=== PATIENT | female | born 1965 | race Caucasian/White ===

== ENCOUNTER → 2018-05-08 16:14 | Outpatient (CLI) | payer MEDICAID, SELFPAY ==
--- NOTE | 2018-05-08 16:19 | RAD_ITS ---
STUDY: X-RAY - RIGHT HAND REASON FOR EXAM: Female, 52 years old. Pain TECHNIQUE: 3 view(s) of the hand. COMPARISON: 07/14/2011 FINDINGS: Normal radiocarpal articulation. Normal distal radioulnar joint. Normal visualized carpal bones. Normal carpal articulations Normal carpometacarpal articulation of the thumb. Normal second through fifth carpometacarpal joints. Normal metacarpi. Normal metacarpophalangeal joint of the thumb. Normal interphalangeal joint of the thumb. Normal proximal and distal phalanges of the thumb. Normal metacarpophalangeal joints of the second through fifth fingers. Normal proximal and distal interphalangeal joints of the second through fifth fingers. Normal phalanges of the second through fifth fingers. The soft tissue structures are unremarkable. RAD/Hand Min 3 Views IMPRESSION: Normal x-ray examination of the hand. Electronically Signed: Delmar Clifford MD at 16:31 EDT , Service support ,
--- NOTE | 2018-05-08 16:19 | RAD_ITS ---
STUDY: X-RAY - LEFT HAND REASON FOR EXAM: Female, 52 years old. Pain TECHNIQUE: 3 view(s) of the hand. COMPARISON: 07/12/2017 FINDINGS: Normal radiocarpal articulation. Normal distal radioulnar joint. Normal visualized carpal bones. Normal carpal articulations Normal carpometacarpal articulation of the thumb. Normal second through fifth carpometacarpal joints. Normal metacarpi. Normal metacarpophalangeal joint of the thumb. Normal interphalangeal joint of the thumb. Normal proximal and distal phalanges of the thumb. Normal metacarpophalangeal joints of the second through fifth fingers. Normal proximal and distal interphalangeal joints of the second through fifth fingers. Normal phalanges of the second through fifth fingers. The soft tissue structures are unremarkable. RAD/Hand Min 3 Views IMPRESSION: Normal x-ray examination of the hand. Electronically Signed: Delmar Clifford MD at 16:30 EDT , Service support ,
== END ==
PROVIDERS: Family Provider Family Medicine; PCP Family Medicine; Referring Provider Family Medicine; Visit Provider Family Medicine
DX: M06.9 Rheumatoid arthritis, unspecified (principal)
CPT/HCPCS: 73130

== ENCOUNTER 2018-09-23 23:23 | Emergency (ER) | payer MEDICAID, SELFPAY ==
[2018-09-23 23:24] VITALS: BP 117/81; PULSE 105; RESP 17; TEMP 37.1; O2SAT 100; BMI 36.6
[2018-09-23] MEDS: proMETHazine 25 MG/ML Syringe 12.5 MG IV (23:45)
[2018-09-23] MEDS: 0.9% Normal Saline 1,000 ML 1000 ML IV (23:45)
[2018-09-23 23:57] LABS: Absolute Lymphocyte Count 0.27 X10^3/ul (0.83-4.51); Absolute Neutrophil Count 8.5 X10^3/uL (2.0-7.7); Basophil# 0.01 X10^3/uL; Basophil% 0.1 % (0-1); Eosinophils% 1.1 % (0-5); Hematocrit 45.8 % (37-47); Hemoglobin 14.9 g/dl (12.0-15.0); Lymphocyte # 0.27 X10^3/ul (4.0); Mean Corp Hgb Conc 32.5 g/gl (32-36); Mean Corpuscular Hgb 32.1 pg (27.0-32.0); Mean Corpuscular Volume 98.7 fL (81-99); Mean Platelet Vol. 8.9 fl (6.2-12.0); Monocyte# 0.27 X10^3/uL; Neutrophil # 8.49 X10^3/uL (2.7-7.7); Neutrophil % 92.7 % (47-70); Platelet Count 200 K/mm3 (150-450); RBC Distribution Width CV 13.1 % (11.6-14.6); RBC Distribution Width SD 47.2 fl (35.1-43.9); Red Blood Count 4.64 M/mm3 (4.2-5.4); White Blood Count 9.2 K/mm3 (4.4-11.0)
[2018-09-23 23:59] LABS: Differential Indicated SCAN CRITERIA MET; POSITIVE COUNT NO; POSITIVE DIFFERENTIAL YES; POSITIVE MORPHOLOGY NO
[2018-09-24 00:30] LABS: AST(SGOT) 33 U/L (15-37); Alanine Aminotransfer ALT/SGPT 28 U/L (13-56); Alkaline Phosphatase 83 U/L (45-117); Anion Gap 7 (5-15); BUN 17 mg/dL (7-18); BUN/Creat Ratio 15.6 RATIO (10-20); Chloride 104 mmol/L (98-107); Creatinine, Serum 1.09 mg/dL (0.55-1.02); EST Glomerular Filtration Rate 56 mL/min (>60); Est Glom Filt Rate - Afr Amer 68 mL/min (>60); Estimated Creatinine Clearance 65.29 ml/min; Globulin 4.1 g/dL (2.2-4.2); Glucose 118 mg/dL (74-106); Lipase 241 U/L (73-393); Potassium 4.4 mmol/L (3.5-5.1); Protein, Total 8.1 g/dL (6.4-8.2); Sodium Level 134 mmol/L (136-145)
[2018-09-24] MEDS: Loperamide 2 MG Capsule 4 MG PO (00:51)
--- NOTE | 2018-09-24 01:47 | ED.VISSUMM ---
- ER Visit Summary Date of Service: 09/24/18 Chief Complaint: Nausea, vomiting, and diarrhea History of Present Illness: The patient is a 52 F who presents with nausea, vomiting, and diarrhea. The symptoms started today around 7:30 PM. This is nonbloody. She has associated chills. No other associated symptoms. No abdominal pain. No recent travel or other red flag risk factors. Physical Examination: Afebrile and vital signs unremarkable except for heart rate of 105. The patient appears uncomfortable but not toxic or in distress. HEENT exam grossly unremarkable. Mucous membrane's are moist. Skin normal in color without jaundice, diaphoresis, or pallor. Heart tachycardic but regular. Lungs clear. Abdomen soft and nontender. No guarding or rebound. Test Results: CBC, CMP, lipase unremarkable. Emergency Department Course and Treatment: Patient treated with fluids, Phenergan, and Imodium. She had resolution of her symptoms. I believe this is likely viral gastroenteritis. There is no indication for stool testing or imaging or further testing at this point. Patient was advised that things may change, and if she has new or worsening symptoms, she should return as she may need additional testing or evaluation. She was treated with a course of Phenergan and Imodium. Treatment Plan: As above Disposition: Discharge Impression: 1. Nausea, vomiting, diarrhea This note was generated with [employer] dictation software. It may contain incorrect words, spelling, and punctuation that were not noted in review of the chart prior to signing ED Disposition - Plan for ED Patient: Instructions: ED Vomiting Diarrhea Nonspecific Ad Prescriptions: Loperamide [Imodium] 2 mg PO Q4H PRN PRN #30 cap PRN Reason: Diarrhea proMETHazine tablet [Phenergan] 25 mg PO Q6H PRN PRN #10 tab PRN Reason: Nausea Referrals: Kaleb Steele MD [Primary Care Provider] -
[2018-09-24 02:07] VITALS: BP 129/79; PULSE 94; RESP 18; O2SAT 96
== END 2018-09-24 02:09 | disposition home or self-care (01) ==
LOC: ED 23:47
PROVIDERS: Emergency Provider Emergency Medicine; Family Provider Family Medicine; PCP Family Medicine
DX: R11.2 Nausea with vomiting, unspecified (principal); R19.7 Diarrhea, unspecified; I10 Essential (primary) hypertension; M19.90 Unspecified osteoarthritis, unspecified site; M10.9 Gout, unspecified; Z72.0 Tobacco use; Z79.899 Other long term (current) drug therapy
CPT/HCPCS: 80053; 83690; 85025; 96361; 96374; 99284; J7030; A4216

== ENCOUNTER → 2018-10-08 12:52 | Outpatient (CLI) | payer MEDICAID, SELFPAY ==
[2018-09-23 23:24] VITALS: BMI 36.6
--- NOTE | 2018-10-08 12:54 | RAD_ITS ---
STUDY: X-RAY - LEFT KNEE REASON FOR EXAM: Female, 52 years old. Left knee pain. No known injury. TECHNIQUE: 4 view(s) of the knee. COMPARISON: Prior comparison studies are not available for review at this time. FINDINGS: There is degenerative periarticular spurring of the femoral condyles. There is mild degenerative periarticular spurring of the tibial plateaus, greater laterally, and tibial spines, greater medially. Subarticular sclerosis and mild subarticular cystic degenerative change also noted in the lateral tibial plateau. Normal visualized proximal fibula. There is early periarticular spurring at the base of the patella. There is no demonstrated destructive osseous lesion or acute fracture. Normal medial femorotibial compartment. There is mild degenerative arthrosis of the lateral femorotibial compartment. Normal patellofemoral articulation. Normal proximal tibiofibular articulation. There is no demonstrated joint effusion. The soft tissue structures are unremarkable. RAD/Knee 4 or More Views IMPRESSION: Degenerative changes of the left knee, as described, most prominent in the lateral femorotibial compartment. Electronically Signed: Delmar Sow MD at 19:13 EDT , Service support ,
== END ==
PROVIDERS: Family Provider Family Medicine; PCP Family Medicine; Referring Provider Physician Assistant; Visit Provider Physician Assistant
DX: M25.562 Pain in left knee (principal)
CPT/HCPCS: 73564

== ENCOUNTER → 2018-10-15 08:28 | Outpatient (CLI) | payer MEDICAID, SELFPAY ==
[2018-10-12 14:14] VITALS: BMI 36.6
== END ==
PROVIDERS: Family Provider Family Medicine; PCP Family Medicine; Referring Provider Nurse Practitioner Family; Visit Provider Nurse Practitioner Family
DX: J02.9 Acute pharyngitis, unspecified (principal)
CPT/HCPCS: 87081

== ENCOUNTER 2019-01-01 07:27 | Observation (INO) | payer MEDICAID, SELFPAY ==
[2018-12-03 08:35] VITALS: BMI 36.6
[2018-12-25 14:21] VITALS: BP 123/75; PULSE 82; RESP 16; TEMP 36.4; O2SAT 96; BMI 38.8
--- NOTE | 2018-12-25 14:30 | SDCEKG_ITS ---
Test Reason : Blood Pressure : / mmHG Vent. Rate : 079 BPM Atrial Rate : 079 BPM P-R Int : 152 ms QRS Dur : 098 ms QT Int : 410 ms P-R-T Axes : 013 030 017 degrees QTc Int : 470 ms Normal sinus rhythm Normal ECG Confirmed by PIPE STAFFORD, MARTA ([id number]), fashion editor AYLEEN ADAM ([id number]) on 12/28/2018 6:42:27 AM Referred By: Chris Newell Confirmed By:MARTA BETANCUR MD
--- NOTE | 2018-12-31 16:14 | PCM.HP.BLA ---
History and Physical Date of Admission: 01/01/19 MR#: [id number] Acct: [id number] Name: WILLA MACKAY Rep #: [id number] : 1965 Provider: Chris Newell DO Age/Sex: 53/F Location: [facility] [place].[facility] Status: Signed Intake Vital Signs 12/03/18 Body Mass Index (BMI) 36.6 Intake Visit Reasons: LEFT KNEE Chief Complaint: sore throat Allergies codeine Allergy (Verified 10/12/18 14:13) Rash Medications Acebutolol HCl [Sectral (Beta Darius)] 200 mg PO DAILY 07/21/13 [History Confirmed 10/12/18] Hydroxychloroquine [Plaquenil] 200 mg PO BIDCM 07/21/13 [History Confirmed 10/12/18] Meloxicam [Mobic] 15 mg PO DAILY 10/18/15 [History Confirmed 10/12/18] Allopurinol [Zyloprim] 100 mg PO DAILY 10/20/15 [History Confirmed 10/12/18] Citalopram [Celexa] 40 mg PO DAILY 09/23/18 [History Confirmed 10/12/18] Ranitidine HCl [Zantac] 150 mg PO DAILY 09/23/18 [History Confirmed 10/12/18] Loperamide [Imodium] 2 mg PO Q4H PRN PRN #30 cap 09/24/18 [Rx Confirmed 10/12/18] proMETHazine tablet [Phenergan] 25 mg PO Q6H PRN PRN #10 tab 09/24/18 [Rx Confirmed 10/12/18] amoxicillin 500 mg capsule 500 mg PO BID #14 cap 10/12/18 [Rx Confirmed 10/12/18] PFSH Medical History Arthritis (Acute) Asthma (Acute) Knee pain (Acute) Hypertension (Chronic) Family History Other COPD (chronic obstructive pulmonary disease) Seizures Social History Smoking Status: Current every day smoker HPI LEFT KNEE: Surgical H&P: Yes Details: Parts of this documentation were recorded by a scribe, this documentation accurately reflects the service provided and the decisions made by Chris ocasio DO 12/03/18 0758. WILLA MACKAY is a 53 year old F here today for new patient visit. Has seen Christoph in the past. Patient received a left knee steroid injection on 10/08/18 patient states this was only effective for a few days. States she has had several steroid injections, as well as visco supplement. She also had x-rays in september. Patient has an rapier insertion loom fixer brace which she states is effective when she wears it. Has tried ibuprofen and Aleve. Has tried ice and heat, does use ice daily which is not helpful. Denies any PT. Does have painful grinding. Had synvisc injections about 3 years ago which she states was effective for awhile. Denies numbness, tingling or other associated symptoms. Is here today to discuss total knee arthroplasty. Does take mobic. States her left knee has been very painful for 6 months but has had trouble for about 5 years. Did have a left knee meniscus surgery about 5 years ago. Had a pulmonary embolism when she was 18, but no prior or further blood clots no family history and she is not on blood thinners. She does smoke 1/2 pack/day denies any family hx of blood disorders. ROS Const Reports system reviewed and no additional complaints, except as docu Eyes Reports system reviewed and no additional complaints, except as docu ENT Reports system reviewed and no additional complaints, except as docu Card Reports system reviewed and no additional complaints, except as docu Resp Reports system reviewed and no additional complaints, except as docu GI Reports system reviewed and no additional complaints, except as docu Musc Reports system reviewed and no additional complaints, except as docu, Reports as per HPI Skin/Breast Reports system reviewed and no additional complaints, except as docu Neuro Yes system reviewed and no additional complaints, except as docu Psych Reports system reviewed and no additional complaints, except as docu Endo Reports system reviewed and no additional complaints, except as docu Rajiv/Lymph Reports system reviewed and no additional complaints, except as docu Aller/Immun Reports system reviewed and no additional complaints, except as docu Ortho Exam Right Knee Patella Translation: 1 Left Knee Skin/Wound: No ecchymosis, No erythema Homans Sign: No 1+: Effusion Knee ROM: Yes ROM-Extension -20 to 0, No ROM-Flexion 0-140 (120) Examination: No med jt line tenderness, Yes Lat jt line tenderness, Yes Crepitus Stability: NML: Anterior Drawer, NML: Posterior Drawer Patella Translation: 1 Apprehension with Lateral Translation: No Patella Grind: Yes KNEE: prominent varicose veins Collateral and cruciate ligaments intact. No sign of skin infections Supplemental Info 10/08/2018 x-ray left knee: [id number] arthritis lateral compartment large bone spurs throughout the knee Assessment & Plan Problems 1. Primary osteoarthritis of left knee M17.12 2. Tobacco abuse Z72.0 Plan X-rays were reviewed. There is no obvious fracture, dislocation, or lucency noted. Patient aware she has severe OA of her left knee. Patient may continue with her rapier insertion loom fixer brace or is a candidate for surgery. Reviewed the pre-operative plans of a TKA with the patient. Risks and benefits of the procedure were fully explained, including but not limited to infection, neurovascular injury, continued pain, arthritis, stiffness, need for further surgery, re-injury, DVT, PE, general risks of anesthesia, and loss of limb or life. The patient understands all the risks and does wish to proceed with written consent. Educated that the most important part is gaining mobility after surgery. full recovery can take 2 yrs. Will not be able to run or jump after knee replacement d/t the high impact. Educated about a press fit implant vs a cemented implant. Recommendation is a press fit implant as long as it is CR and patient is ok with this. Educated that she will be off work any where from 8 weeks to 3 months. Patient wishes to have total mid to late December. Wishes to have surgery January 01 2019. May call the office for any further questions. Will need PCP consent. Instructed to stop smoking to decrease risk of infection. Follow up in 2 weeks post op or sooner if pain, swelling, numbness or associated symptoms, or concerns develop. All questions answered. Patient in agreement of plan. Coding Level of Care Code Off vis,est,level 3 Diagnoses Primary osteoarthritis of left knee M17.12 Tobacco abuse Z72.0 12/05/18 1321 <Electronically signed by Chris Newell DO> Date Chris Newell DO I have re-examined the patient. There are no clinical changes since date of exam
[2019-01-01] VITALS (12 sets, daily range): BP systolic 108–154; BP diastolic 62–116; PULSE 67–85; RESP 14–18; TEMP 36.3–36.8; O2SAT 92–100; BMI 38.8; BMI 40.6
[2019-01-01] MEDS: Celecoxib 200 MG Capsule 400 MG PO (08:03)
[2019-01-01] MEDS: Acetaminophen 500 MG Tablet PO (08:04)
[2019-01-01] MEDS: Pregabalin 75 MG Capsule PO (08:05)
[2019-01-01] MEDS: oxyCODONE HCl Cr 10 MG Tablet PO (08:05)
[2019-01-01] MEDS: Cefazolin 2 GM in 0.9% Normal Saline 100 ML IV ×2 (10:37→19:13)
[2019-01-01] MEDS: Bupivacaine Mpf 0.5% 30 ML VIAL (11:45)
[2019-01-01] MEDS: Epinephrine (1 mg/ml) 1 MG/ML VIAL (11:45)
[2019-01-01] MEDS: Morphine 4 MG/ML Syringe (11:45)
[2019-01-01] MEDS: Lactated Ringers 1,000 ML 125 ML IV ×2 (12:25→19:14)
--- NOTE | 2019-01-01 12:31 | PCM.OPRPT ---
Report of Operation Date of Procedure: 01/01/19 Description of Surgical Findings:: Preoperative diagnosis: [Left] knee DJD Postoperative diagnosis: [Same] Procedure: [Left] total knee arthroplasty Implant: [place] triathlon cemented [left] femoral component size 5, cemented tibial baseplate size 5, cemented [asymmetric] patella size [32], polyethylene X3 size [9] [CS] Anesthesia: Spinal with adductor canal block Tourniquet time: 70 minutes at 300 mmHg Complications: None Condition: Stable to PACU Estimated blood loss: [25] cc Indication for procedure: This is a 53-year-old female with long standing degenerative joint disease of the knee who has failed conservative treatment and wished to proceed with elective total knee arthroplasty. Risk benefits and alternatives were reviewed including; risk of bleeding, infection, nerve artery and tissue damage, continued pain, postoperative stiffness, venous thromboembolism, need for postoperative rehabilitation, mechanical feel to the knee, and expected postoperative course. Procedure: The patient was met in the preoperative holding area. The operative extremity was identified by both patient and physician and was marked. Patient was met by anesthesia. An adductor canal block was placed by anesthesia [postoperatively] the patient was brought back to the operating room on a wheeled cart and transferred to the operating table in the supine position. Anesthesia was started. A well-padded tourniquet was placed on the operative extremity. The patient was prepped and draped in the usual sterile fashion. A timeout was called to ensure the proper patient procedure and extremity were being contemplated. An Esmarch was used to exsanguinate the extremity. The tourniquet was inflated. A 10 blade scalpel was used to make a midline incision down through the skin and subcutaneous tissue. Skin retractors placed. Bovie was used to perform meticulous hemostasis. full-thickness flaps were elevated medial and lateral along the joint capsule. A deep blade scalpel was used to perform a medial parapatellar arthrotomy. The knee was brought to full extension. A Bovie was used to release the soft tissues off the most proximal aspect of the medial tibial plateau a three-quarter inch curved osteotome was also used for this process. The infrapatellar fat pad was excised. [The fat pad was excised partially anterior lateral portion the anterior medial was elevated from the femur]. the patella was everted. The knee was brought into flexion. An intramedullary drill was used followed by flexible intramedullary guide jil. The distal femoral cutting block was placed and set to remove 10 mm of bone and [5] degrees of valgus. The block was secured with pins and an oscillating saw was used to complete the distal femoral cut. During this, and all bony cuts retractors were used to protect the collateral ligaments. At this point a femoral sizer was used to measure the AP dimension of the femur. The sizer block was pinned in 3 degrees of external rotation. The sizing block was removed and the appropriately sized 4-in-1 cutting block was placed over the previously made pinholes. It was checked with an harjeet wing and the block was secured with pins. An oscillating saw was used to complete the anterior cut followed by the posterior cut followed by the posterior chamfer cut followed by the anterior chamfer cut. The block was removed as well as the fragments. A ronguer was used to remove excess osteophytes. The medial and lateral meniscus were excised as well as the ACL. At this point a PCL retractor was placed and an intramedullary drill was passed down the tibial canal followed by a solid intramedullary guide jil. The tibial cutting block was attached and set to remove 9 mm of bone from the high side. This was checked with an external alignment drop jil for slope and tilt. It was pinned into place. An oscillating saw was used to complete the tibial plateau cut and the block was removed. A large osteotome was used to elevate the fragment and a Neil and a Bovie were used to free the fragment from the surrounding soft tissue. A rongeur was once again used to remove osteophytes a lamina candy spreader was used to evaluate the posterior capsular structures. A three-quarter inch curved osteotome was used to remove posterior osteophytes. A spacer block was inserted in both extension and flexion to ensure adequate spacing. Trials were inserted full extension and flexion were achieved in varus and valgus stability throughout range of motion were seen, balancing techniques were performed. At this point the attention was turned towards the patella. A caliper was used to ensure sufficient bone stock to remove 10 mm of bone. A reamer was used to perform this task. Lug holes were made for the appropriate-sized patella. The patella trial was inserted and there was good patellar tracking with knee range of motion. The tibial baseplate was allowed to float into rotation and was marked on the tibial plateau with a Bovie. Lug holes were made in the femur and trials were removed. The tibial baseplate was then sized and its preparation was completed with a fin punch. The knee was thoroughly irrigated. A posterior capsular injection was performed [with our standard cocktail]. The knee was brought into flexion and irrigated again. The tibial baseplate was cemented. Excess cement was removed with curettes. The polyethylene component was inserted. The femoral component was cemented. The knee was brought into full extension and placed on a bump. The patellar component was cemented. At this point a Betadine rinse was placed and thoroughly irrigated after a few minutes. This was followed by an Iricept rinse which was allowed to sit for 1 minute and then thoroughly irrigated.At this point all gloves were changed. The knee was thoroughly irrigated the joint capsule was closed with [#1 Ethibond]. Tourniquet was let down followed by 0 Vicryl and 2-0 Vicryl in the subcutaneous tissues. followed by ck in the skin. Dressing was applied in the form of Xeroform 4 x 4 ABD web roll and an Tha wrap from the foot to the groin. The patient tolerated the procedure well, all counts were correct patient was brought back to the PACU in stable condition.
--- NOTE | 2019-01-01 13:10 | RAD_ITS ---
STUDY: X-RAY - LEFT KNEE REASON FOR EXAM: Female, 53 years old. Total knee replacement. TECHNIQUE: AP and lateral view(s) of the knee. COMPARISON: Comparison is made with prior study dated October 08, 2018. FINDINGS: The patient is status post total knee replacement. There is good alignment. Postoperative soft tissue changes. RAD/Knee 1 or 2 Views IMPRESSION: Status post total knee replacement. There is good alignment. Postoperative soft tissue changes. Electronically Signed: Tim Dewitt, at 13:23 EDT , Service support ,
[2019-01-01] MEDS: Ketorolac 15 MG/ML Vial IV ×2 (13:35→20:00)
[2019-01-01] MEDS: oxyCODONE 5 MG Tablet PO ×3 (13:46→23:38)
[2019-01-01] MEDS: Acetaminophen 500 MG Tablet 1000 MG PO ×2 (17:04→22:28)
[2019-01-01] MEDS: Ondansetron 4 MG/2 ML Vial IV (19:59)
[2019-01-01] MEDS: 0.9% NaCl Peripheral Flush Adult/Peds IV (19:59)
[2019-01-01] MEDS: Senna/Docusate Sodium 1 Tablet 2 TABLET PO (22:28)
[2019-01-02] VITALS (7 sets, daily range): BP systolic 102–136; BP diastolic 59–74; PULSE 71–84; RESP 16–18; TEMP 36.4–36.9; O2SAT 93–100
--- NOTE | 2019-01-02 00:41 | NURSING ---
Sats in 80's on room air. Oxygen applied at 1L via n/c and sats now in the upper 90's.
[2019-01-02] MEDS: Cefazolin 2 GM in 0.9% Normal Saline 100 ML IV (01:53)
[2019-01-02] MEDS: Ketorolac 15 MG/ML Vial IV (03:15)
[2019-01-02] MEDS: oxyCODONE 5 MG Tablet PO ×4 (05:58→19:30)
[2019-01-02 06:35] LABS: Anion Gap 6 (5-15); BUN 15 mg/dL (7-18); BUN/Creat Ratio 13.5 RATIO (10-20); Calcium,Total 8.2 mg/dL (8.5-10.1); Chloride 101 mmol/L (98-107); Creatinine, Serum 1.11 mg/dL (0.55-1.02); EST Glomerular Filtration Rate 55 mL/min (>60); Est Glom Filt Rate - Afr Amer 66 mL/min (>60); Estimated Creatinine Clearance 61.25 ml/min; Glucose 96 mg/dL (74-106); Potassium 4.1 mmol/L (3.5-5.1); Sodium Level 137 mmol/L (136-145)
[2019-01-02 07:31] LABS: Hematocrit 33.6 % (37-47); Hemoglobin 10.8 g/dl (12.0-15.0); Mean Corp Hgb Conc 32.1 g/gl (32-36); Mean Corpuscular Volume 99.7 fL (81-99); Mean Platelet Vol. 8.8 fl (6.2-12.0); Platelet Count 185 K/mm3 (150-450); RBC Distribution Width CV 13.8 % (11.6-14.6); RBC Distribution Width SD 49.9 fl (35.1-43.9); Red Blood Count 3.37 M/mm3 (4.2-5.4); White Blood Count 5.3 K/mm3 (4.4-11.0)
[2019-01-02 07:32] LABS: Scan Indicated on CBC? Y/N NO
--- NOTE | 2019-01-02 07:36 | PCM.PN.ORT ---
Subjective: Seen and examined. Complaint of pain no fevers chills nausea vomiting shortness of breath or chest pain - Physical Exam General: Alert, Oriented x3, Cooperative, No apparent distress Extremities: - - Dressing clean dry and intact. Neurovascularly intact compartments soft Vital Signs Temp Pulse Resp BP Pulse Ox 97.5 F L 79 18 102/63 94 01/02/19 06:03 01/02/19 06:03 01/02/19 06:03 01/02/19 06:03 01/02/19 06:03 Oxygen Flow Rate (L/min) 1 Oxygen Delivery Method Room Air Weight: 275 lb 5.718 oz Body Mass Index (BMI) 40.6 Intake and Output for Last 24 Hours 12/31/18 01/01/19 01/02/19 23:59 23:59 23:59 Intake Total 1000 / 1000 3142 / 3142 Output Total 1050 / 1050 Balance 1000 / 1000 2091 / 2091 Laboratory Tests Past 24 Hrs 01/02/19 01/02/19 05:42 05:42 WBC 5.3 RBC 3.37 L Hgb 10.8 L Hct 33.6 L MCV 99.7 H MCH 32.0 MCHC 32.1 RDW 13.8 RDW Differential 49.9 H Plt Count 185 MPV 8.8 Sodium 137 Potassium 4.1 Chloride 101 Carbon Dioxide 30.0 Anion Gap 6 BUN 15 Creatinine 1.11 H Estim Creat Clear Calc 61.25 Est GFR (MDRD) Af Amer 66 Est GFR (MDRD) Non-Af 55 L BUN/Creatinine Ratio 13.5 Glucose 96 Calcium 8.2 L Medical Necessity - Tobacco Use Smoking Status: Current every day smoker Tobacco Use: Cigarettes Assessment/Plan All Active Problems (Last Reviewed 10/12/18 @ 14:14 by Soila Rojas) Cellulitis (Acute) Cat bite of hand (Acute) Postop day #1 total knee arthroplasty. DVT prophylaxis SCDs NADER Qureshi PT OT weightbearing as tolerated Renal function slightly elevated will continue to run fluids and recheck BMP tomorrow morning DC planning home tomorrow with home health care Dressing to be changed in a.m. cleaned as ordered instructions
[2019-01-02] MEDS: HYDROmorphone 1 MG/ML Syringe 0.5 MG IV ×4 (08:56→22:06)
[2019-01-02] MEDS: Ondansetron 4 MG/2 ML Vial IV (08:56)
[2019-01-02] MEDS: Famotidine 20 MG Tablet PO (08:57)
[2019-01-02] MEDS: Allopurinol 100 MG Tablet PO (08:57)
[2019-01-02] MEDS: Acetaminophen 500 MG Tablet 1000 MG PO ×3 (08:57→20:56)
[2019-01-02] MEDS: Citalopram 40 MG TABLET PO (08:57)
[2019-01-02] MEDS: Senna/Docusate Sodium 1 Tablet 2 TABLET PO ×2 (08:57→20:57)
[2019-01-02] MEDS: APIXABAN 2.5 MG TABLET PO ×2 (08:58→20:57)
[2019-01-02] MEDS: 0.9% NaCl Peripheral Flush Adult/Peds IV ×4 (09:00→22:06)
[2019-01-02] MEDS: 0.9% Normal Saline 1,000 ML 100 ML IV ×2 (09:04→17:52)
--- NOTE | 2019-01-02 10:50 | CASEMGMT ---
DAVIS BOWEN Face to Face with patient for initial transition planning/care coordination assessment. RN ANDRÉS introduced self and role at [facility]. Patient lying in bed, alert and oriented. Patient willing to participate in assessment and is able to answer all questions appropriately. Care providers, pharmacy, and demographics verified. Patient wishes to discharge home with HHC for therapy. Patient has no preference for HHC as long as in network with insurance. DAVIS BOWEN left message with [facility]. Patient states she has no further needs or concerns at this time. CM to follow for discharge planning needs that may arise. PCP: Cedric Specialists: Mack entertainment centre manager Preferred Pharmacy: [facility] Insurance: [employer] Prescription Benefit: yes Living Will/HPOA: yes, significant other Jackelyn Valentino LNOK: Sig other Living Arrangements: Patient lives with sig other in ranch style home Transportation: self/sig other DME/HHC: Patient has raised toilet, cane, grab bars, walker Disposition Plan: Patient to discharge home with HHC, family support, and follow-up plans in place. Kay CORONEL, RN, CM
[2019-01-02] MEDS: tiZANidine HCl 2 MG Tablet PO (19:27)
[2019-01-03] MEDS: oxyCODONE 5 MG Tablet PO ×2 (01:12→08:34)
[2019-01-03 01:17] VITALS: BP 125/60; PULSE 91; RESP 16; TEMP 36.7; O2SAT 96
[2019-01-03] MEDS: 0.9% Normal Saline 1,000 ML 100 ML IV (04:11)
[2019-01-03] MEDS: tiZANidine HCl 2 MG Tablet PO (04:11)
[2019-01-03 05:09] LABS: Hematocrit 30.4 % (37-47); Hemoglobin 9.7 g/dl (12.0-15.0); Mean Corp Hgb Conc 31.9 g/gl (32-36); Mean Corpuscular Hgb 31.6 pg (27.0-32.0); Mean Platelet Vol. 8.3 fl (6.2-12.0); Platelet Count 164 K/mm3 (150-450); RBC Distribution Width CV 13.2 % (11.6-14.6); RBC Distribution Width SD 45.7 fl (35.1-43.9); Red Blood Count 3.07 M/mm3 (4.2-5.4); White Blood Count 5.5 K/mm3 (4.4-11.0)
[2019-01-03 05:10] LABS: Scan Indicated on CBC? Y/N NO
[2019-01-03 05:14] LABS: Anion Gap 5 (5-15); BUN 9 mg/dL (7-18); BUN/Creat Ratio 10.5 RATIO (10-20); Calcium,Total 8.3 mg/dL (8.5-10.1); Chloride 109 mmol/L (98-107); Creatinine, Serum 0.86 mg/dL (0.55-1.02); EST Glomerular Filtration Rate 74 mL/min (>60); Est Glom Filt Rate - Afr Amer 89 mL/min (>60); Estimated Creatinine Clearance 79.06 ml/min; Glucose 109 mg/dL (74-106); Sodium Level 142 mmol/L (136-145)
[2019-01-03] MEDS: Acetaminophen 500 MG Tablet 1000 MG PO (05:49)
[2019-01-03 06:11] VITALS: BP 122/72; PULSE 97; RESP 16; TEMP 37.1; O2SAT 95
[2019-01-03 08:32] VITALS: BP 105/54; PULSE 88; RESP 16; TEMP 37; O2SAT 98
--- NOTE | 2019-01-03 08:32 | DCINST_ITS ---
Discharge Diet: No Restrictions Call your doctor if you observe: Fever of 101 or Higher, Shortness of breath, Chest pain Additional Instructions: Ice and elevate next week while not ambulating. Encourage ambulation weightbearing as tolerated. Encourage FULL knee extension and flexion 1 time EVERY time you get up and down and MULTIPLE times per day. Begin showering postop day #3. Remove the dressing prior to shower gently wash with warm water and antibacterial soap then pat dry place ABD pad and NADER hose over top. This is to be done daily. If not showering daily must clean incision and change dressing daily. Do not allow animals near incision keep clean. Follow anticoagulation recommendations. Call Dr. Newell with any concerns. Allergies/Adverse Reactions: Allergies codeine Allergy (Verified 10/12/18 14:13) Rash Medications to take at Discharge Acebutolol HCl [Sectral (Beta Darius)] 200 mg PO DAILY 07/21/13 Allopurinol [Zyloprim] 100 mg PO DAILY 10/20/15 Citalopram [Celexa] 40 mg PO DAILY 09/23/18 Ranitidine HCl [Zantac] 150 mg PO DAILY 09/23/18 Albuterol Inhaler [Ventolin Hfa] 1 - 2 puff INHALATION Q4H PRN PRN 12/25/18 Cholecalciferol (Vitamin D3) [Vitamin D3] 2,000 unit PO DAILY 12/25/18 Apixaban [Eliquis] 2.5 mg PO BID 14 Days #28 tablet 01/03/19 Oxycodone [Oxyir] 5 - 10 mg PO Q4H PRN PRN 7 Days #60 tablet 01/03/19 Tizanidine HCl [Zanaflex] 2 mg PO Q8H PRN PRN 7 Days #30 tablet 01/03/19 The following prescriptions were given: Oxycodone [Oxyir] 5 - 10 mg PO Q4H PRN PRN 7 Days #60 tablet PRN Reason: Mod-Severe Pain (4-10/10) Tizanidine HCl [Zanaflex] 2 mg PO Q8H PRN PRN 7 Days #30 tablet PRN Reason: SPASMS Apixaban [Eliquis] 2.5 mg PO BID 14 Days #28 tablet Primary Care Physician: Kaleb Steele MD [Primary Care Provider] - Test Results: Test results from this visit will be discussed in further detail at your follow- up appointment, if applicable. Please Follow Up With: Chris Newell DO - 2 weeks
--- NOTE | 2019-01-03 08:32 | PCM.DC.SUM ---
Discharge Date and Diagnosis Date of Admission: 01/01/19 Date of Discharge: 01/03/19 - Secondary Discharge Diagnosis Chronic Problems (Last Reviewed 10/12/18 @ 14:14 by Soila Rojas) Microscopic colitis (Chronic) Hypertension (Chronic) Obesity (BMI 30-39.9) (Chronic) Asthma (Chronic) Rheumatoid arthritis (Chronic) Tobacco use (Chronic) Obesity (BMI 30-39.9) (Chronic) Hospital Course and Treatment Operations: None Summary of Care Provided: The patient is a 53 year old F who has long history of degenerative joint disease to the knee who has failed conservative treatment and wished to undergo elective total knee arthroplasty. Patient underwent the aformentioned procedure on the admission date without any intraoperative complications. She did receive pre-and postoperative antibiotics which were discontinued within 23 hours postoperatively. She did receive spinal anesthesia as well as an adductor canal block postoperatively her pain was controlled with IV and transition to p.o. pain medication she will be discharged home with oxycodone and will continue Tylenol as well. She had minimal intraoperative blood loss and tranexamic acid was administered there was no need for postoperative blood transfusion her vital signs remained stable. She was started on both mechanical and chemical DVT per prophylaxis postoperatively in the form of SCDs NADER hose and Eliquis 2.5 mg twice daily for which she will continue for 2 additional weeks post hospital discharge. Her dressing was changed on postop day #2 without any concerning signs she will begin showering on postop day #3 and will change her dressing daily at this point. She will follow-up in the office in 2 weeks. No intrahospital complications. Patient did have a elevation in her renal function lab studies on postop day #1 she was given intravenous fluids and rechecked on postop day #2 and it was returned to normal. I recommend that she follow-up with her PCP for repeat lab testing within 1 month and to hold any NSAIDs until this is completed and off anticoagulation Subjective: Alert and oriented no acute distress no complaints - Physical Exam General: Alert, No apparent distress Extremities: - - Incision well approximated no signs of infection ck intact compartments soft neurovascular intact Vital Signs Temp Pulse Resp BP Pulse Ox 98.7 F 97 16 122/72 H 95 01/03/19 06:11 01/03/19 06:11 01/03/19 06:11 01/03/19 06:01/03/19 06:11 Oxygen Flow Rate (L/min) 1 Oxygen Delivery Method Room Air Weight: 275 lb 5.718 oz Body Mass Index (BMI) 40.6 Intake and Output for Last 24 Hours 01/01/19 01/02/19 01/03/19 23:59 23:59 23:59 Intake Total 1000 / 1000 6489 / 6489 2200 / 2200 Output Total 3750 / 3750 2500 / 2500 Balance 1000 / 1000 2739 / 2739 -300 / -300 Laboratory Tests Past 24 Hrs 01/03/19 01/03/19 04:50 04:50 WBC 5.5 RBC 3.07 L Hgb 9.7 L Hct 30.4 L MCV 99.0 MCH 31.6 MCHC 31.9 L RDW 13.2 RDW Differential 45.7 H Plt Count 164 MPV 8.3 Sodium 142 Potassium 4.0 Chloride 109 H Carbon Dioxide 28.0 Anion Gap 5 BUN 9 Creatinine 0.86 Estim Creat Clear Calc 79.06 Est GFR (MDRD) Af Amer 89 Est GFR (MDRD) Non-Af 74 BUN/Creatinine Ratio 10.5 Glucose 109 H Calcium 8.3 L Discharge Diet: No Restrictions Call your doctor if you observe: Fever of 101 or Higher, Shortness of breath, Chest pain Home Medications: Medications to take at Discharge Acebutolol HCl [Sectral (Beta Darius)] 200 mg PO DAILY 07/21/13 Allopurinol [Zyloprim] 100 mg PO DAILY 10/20/15 Citalopram [Celexa] 40 mg PO DAILY 09/23/18 Ranitidine HCl [Zantac] 150 mg PO DAILY 09/23/18 Albuterol Inhaler [Ventolin Hfa] 1 - 2 puff INHALATION Q4H PRN PRN 12/25/18 Cholecalciferol (Vitamin D3) [Vitamin D3] 2,000 unit PO DAILY 12/25/18 Apixaban [Eliquis] 2.5 mg PO BID 14 Days #28 tablet 01/03/19 Oxycodone [Oxyir] 5 - 10 mg PO Q4H PRN PRN 7 Days #60 tablet 01/03/19 Tizanidine HCl [Zanaflex] 2 mg PO Q8H PRN PRN 7 Days #30 tablet 01/03/19 Following Prescrptions Were Given to Patient: Oxycodone [Oxyir] 5 - 10 mg PO Q4H PRN PRN 7 Days #60 tablet PRN Reason: Mod-Severe Pain (4-1010) Tizanidine HCl [Zanaflex] 2 mg PO Q8H PRN PRN 7 Days #30 tablet PRN Reason: SPASMS Apixaban [Eliquis] 2.5 mg PO BID 14 Days #28 tablet Primary Care Physician: Kaleb Steele MD [Primary Care Provider] - Please Follow Up With: Chris Newell, - 2 weeks Additional Instructions: Ice and elevate next week while not ambulating. Encourage ambulation weightbearing as tolerated. Encourage FULL knee extension and flexion 1 time EVERY time you get up and down and MULTIPLE times per day. Begin showering postop day #3. Remove the dressing prior to shower gently wash with warm water and antibacterial soap then pat dry place ABD pad and NADER hose over top. This is to be done daily. If not showering daily must clean incision and change dressing daily. Do not allow animals near incision keep clean. Follow anticoagulation recommendations. Call Dr. Newell with any concerns. Medical Necessity - Tobacco Use Smoking Status: Current every day smoker Tobacco Use: Cigarettes Meaningful Use Info Meaningful Use Diagnoses (Choose all that apply): None applicable
[2019-01-03] MEDS: APIXABAN 2.5 MG TABLET PO (10:25)
[2019-01-03] MEDS: Allopurinol 100 MG Tablet PO (10:25)
[2019-01-03] MEDS: Famotidine 20 MG Tablet PO (10:25)
[2019-01-03] MEDS: Senna/Docusate Sodium 1 Tablet 2 TABLET PO (10:25)
[2019-01-03] MEDS: Citalopram 40 MG TABLET PO (10:25)
== END 2019-01-03 11:22 | disposition home health service (06) ==
LOC: ACINP 14:21 → MS3 14:21
PROVIDERS: Admitting Provider Orthopaedic Surgery; Family Provider Family Medicine; PCP Family Medicine; Referring Provider Orthopaedic Surgery; Visit Provider Orthopaedic Surgery
PROC: (CPT 27447; principal; 2019-01-01 09:45)
DX: M17.12 Unilateral primary osteoarthritis, left knee (principal); J45.909 Unspecified asthma, uncomplicated; I10 Essential (primary) hypertension; Z79.899 Other long term (current) drug therapy; Z86.711 Personal history of pulmonary embolism; F17.210 Nicotine dependence, cigarettes, uncomplicated; M06.9 Rheumatoid arthritis, unspecified; F32.9 Major depressive disorder, single episode, unspecified; K21.9 Gastro-esophageal reflux disease without esophagitis; E66.9 Obesity, unspecified; Z68.38 Body mass index [BMI] 38.0-38.9, adult; Z71.3 Dietary counseling and surveillance
CPT/HCPCS: 27447; 64447; 36415; 73560; 80048; 85027; 87081; 93005; 96361; 96365; 96366; 96375; 96376; 97110; 97116; 97162; 97166; 97530; 99218; 99406; C1776; J7030; J7120; A4216; G0378; G0379; J2405; J3490

== ENCOUNTER 2019-01-05 11:12 | Emergency (ER) | payer MEDICAID, SELFPAY ==
[2019-01-01 14:34] VITALS: BMI 40.6
[2019-01-05 11:13] VITALS: BP 101/68; PULSE 88; RESP 18; TEMP 36.8; O2SAT 97; BMI 39.1
--- NOTE | 2019-01-05 11:35 | VDLE_ITS ---
Reason For Study: Swelling Procedure LEFT Exam performed portable in ED. GSV is normal. A preliminary report was called and/or faxed CFV is compressible, spontaneous, phasic, to Shayla. competent, and demonstrates normal augmentation. FV is compressible, spontaneous, phasic, competent and demonstrates normal augmentation. POP V is compressible, spontaneous, phasic, competent and demonstrates normal augmentation. T/P Trunk is compressible. PTV is compressible. LT PerV is compressible. Interpretation Summary Deep veins of the left lower extremity are patent and compressible segmentally. There is no evidence of left lower extremity deep vein thrombosis. Valvular competence appears intact within the proximal deep venous system on the left . The left greater saphenous vein appears patent and compressible segmentally. Ordering Physician: Sujey Mcguire Referring Physician: Be Steele MD Performed By: Kay Andrews RVT
--- NOTE | 2019-01-05 12:16 | ED.VISSUMM ---
- ER Visit Summary Date of Service: 01/05/19 Chief Complaint: [Left knee swelling and pain] History of Present Illness: The patient is a 53 F [presents to the emergency department with increased swelling to her left knee over the last 2 days. Patient is status post total knee replacement [address] Newell. Patient called physician correction officer reformatory today and was advised to come to the emergency department to get an ultrasound to rule out DVT. Patient denies any chest pain or shortness of breath. Denies any fevers. She personally does not think that the knee looks more red than usual and she has not noticed any increased drainage from the wound. Patient with history of hypertension.] Physical Examination: [HEENT-PERRLA, EOMI. Cranial nerves II through XII grossly intact. TMs clear. Mucous membranes moist. No adenopathy. Cardiovascular-regular rate and rhythm without murmur or ectopy Lungs-clear to auscultation, chest wall stable without crepitus or subcu emphysema Abdomen-normoactive bowel sounds, soft, nontender, no rebound or rigidity, no peritoneal signs. Extremities-intact ?4, normal range of motion, normal pulses. Left knee-patient has diffuse soft tissue swelling down to the ankle. A healing wound noted anterior to the knee with ck still in place. No drainage noted from the wound. The wound edges are not erythematous. Medial lateral aspects of the knee have some faint erythema however the knee is not significantly warm to the touch or cellulitic appearing. She does have some ecchymosis and bruising noted. Neurovascular intact distally. No ropes or cords palpated.] Test Results: [Venous duplex of the left lower extremity obtained was negative for DVT.] Emergency Department Course and Treatment: [Patient case was discussed with Dr. Lela Mullen who asked that we obtain a CBC as well as a sed rate and CRP which will be pending. I will start patient on Keflex empirically as I cannot rule out the early stages or developing cellulitis and postop wound infection. She will be seen in the office in 2 days.] Treatment Plan: [Patient will be started on Keflex and follow-up in office in 2 days.] Disposition: [Discharged to home in stable condition] Impression: [Postop left knee pain and swelling] This note was generated with [employer] software. It may contain incorrect words, spelling, and punctuation that were not noted in review of the chart prior to signing ED Disposition - Plan for ED Patient: Referrals: Kaleb Steele MD [Primary Care Provider] -
--- NOTE | 2019-01-05 12:20 | ED.DCSUM_ITS ---
- ER Visit Summary Date of Service: 01/05/19 Chief Complaint: [Left knee swelling and pain] History of Present Illness: The patient is a 53 F [presents to the emergency department with increased swelling to her left knee over the last 2 days. Patient is status post total knee replacement [address] Newell. Patient called physician allocations clerk today and was advised to come to the emergency department to get an ultrasound to rule out DVT. Patient denies any chest pain or shortness of breath. Denies any fevers. She personally does not think that the knee looks more red than usual and she has not noticed any increased drainage from the wound. Patient with history of hypertension.] Physical Examination: [HEENT-PERRLA, EOMI. Cranial nerves II through XII grossly intact. TMs clear. Mucous membranes moist. No adenopathy. Cardiovascular-regular rate and rhythm without murmur or ectopy Lungs-clear to auscultation, chest wall stable without crepitus or subcu emphysema Abdomen-normoactive bowel sounds, soft, nontender, no rebound or rigidity, no peritoneal signs. Extremities-intact ?4, normal range of motion, normal pulses. Left knee-patient has diffuse soft tissue swelling down to the ankle. A healing wound noted anterior to the knee with ck still in place. No drainage noted from the wound. The wound edges are not erythematous. Medial lateral aspects of the knee have some faint erythema however the knee is not significantly warm to the touch or cellulitic appearing. She does have some ecchymosis and bruising noted. Neurovascular intact distally. No ropes or cords palpated.] Test Results: [Venous duplex of the left lower extremity obtained was negative for DVT.] Emergency Department Course and Treatment: [Patient case was discussed with Dr. Lela Mullen who asked that we obtain a CBC as well as a sed rate and CRP which will be pending. I will start patient on Keflex empirically as I cannot rule out the early stages or developing cellulitis and postop wound infection. She will be seen in the office in 2 days.] Treatment Plan: [Patient will be started on Keflex and follow-up in office in 2 days.] Disposition: [Discharged to home in stable condition] Impression: [Postop left knee pain and swelling] This note was generated with [employer] software. It may contain incorrect words, spelling, and punctuation that were not noted in review of the chart prior to signing ED Disposition - Plan for ED Patient: Referrals: Kaleb Steele MD [Primary Care Provider] -
--- NOTE | 2019-01-05 12:20 | ED.DEP ---
ED Disposition - Plan for ED Patient: Instructions: ED Leg Swelling Unilateral, ED Post Op Pain Prescriptions: Cephalexin [Keflex] 500 mg PO Q6 #40 cap Referrals: Kaleb Steele MD [Primary Care Provider] - Chris Newell DO [STAFF PHYSICIAN] - 2 Days
[2019-01-05] MEDS: Cephalexin 250 MG Capsule 500 MG PO (12:41)
[2019-01-05 12:48] VITALS: BP 127/78; PULSE 87; RESP 18; O2SAT 99
[2019-01-05 12:55] LABS: Absolute Lymphocyte Count 0.52 X10^3/ul (0.83-4.51); Absolute Neutrophil Count 3.5 X10^3/uL (2.0-7.7); Basophil# 0.02 X10^3/uL; Basophil% 0.4 % (0-1); Eosinophil# 0.33 X10^3/uL; Hematocrit 32.1 % (37-47); Hemoglobin 10.5 g/dl (12.0-15.0); Lymphocyte # 0.52 X10^3/ul (4.0); Mean Corp Hgb Conc 32.7 g/gl (32-36); Mean Corpuscular Volume 97.9 fL (81-99); Mean Platelet Vol. 8.3 fl (6.2-12.0); Monocyte# 0.41 X10^3/uL; Monocyte% 8.6 % (0-10); Neutrophil # 3.46 X10^3/uL (2.7-7.7); Platelet Count 247 K/mm3 (150-450); RBC Distribution Width CV 13.1 % (11.6-14.6); RBC Distribution Width SD 45.1 fl (35.1-43.9); Red Blood Count 3.28 M/mm3 (4.2-5.4); White Blood Count 4.7 K/mm3 (4.4-11.0)
[2019-01-05 12:57] LABS: Differential Indicated SCAN CRITERIA MET; POSITIVE COUNT NO; POSITIVE DIFFERENTIAL YES; POSITIVE MORPHOLOGY NO
[2019-01-05 13:23] LABS: Differential Comment SCANNED; Erythrocyte Sedimentation Rate 78 mm/hr (0-30)
== END 2019-01-05 12:50 | disposition home or self-care (01) ==
LOC: ED 11:38
PROVIDERS: Emergency Provider Emergency Medicine; Family Provider Family Medicine; PCP Family Medicine
DX: G89.18 Other acute postprocedural pain (principal); M25.462 Effusion, left knee; Z96.652 Presence of left artificial knee joint; I10 Essential (primary) hypertension; Z72.0 Tobacco use; Z79.01 Long term (current) use of anticoagulants; Z79.899 Other long term (current) drug therapy
CPT/HCPCS: 85025; 85652; 86140; 93971; 99283

== ENCOUNTER → 2019-01-08 | Outpatient (CLI) | payer MEDICAID, SELFPAY ==
[2019-01-07 10:49] VITALS: BMI 39.1
[2019-01-08 14:22] LABS: Absolute Neutrophil Count 4.9 X10^3/uL (2.0-7.7); Basophil# 0.02 X10^3/uL; Basophil% 0.3 % (0-1); Eosinophil# 0.52 X10^3/uL; Eosinophils% 7.6 % (0-5); Lymphocyte % 14.5 % (19-41); Mean Corp Hgb Conc 32.4 g/gl (32-36); Mean Corpuscular Hgb 31.7 pg (27.0-32.0); Mean Corpuscular Volume 97.6 fL (81-99); Mean Platelet Vol. 8.4 fl (6.2-12.0); Monocyte# 0.39 X10^3/uL; Monocyte% 5.7 % (0-10); Neutrophil # 4.93 X10^3/uL (2.7-7.7); Neutrophil % 71.6 % (47-70); Platelet Count 390 K/mm3 (150-450); RBC Distribution Width CV 13.3 % (11.6-14.6); RBC Distribution Width SD 45.5 fl (35.1-43.9); Red Blood Count 3.79 M/mm3 (4.2-5.4); White Blood Count 6.9 K/mm3 (4.4-11.0)
[2019-01-08 14:36] LABS: POSITIVE COUNT NO; POSITIVE DIFFERENTIAL NO; POSITIVE MORPHOLOGY NO
[2019-01-08 14:43] LABS: Erythrocyte Sedimentation Rate 75 mm/hr (0-30)
== END | disposition home or self-care (01) ==
LOC: MTLAB 13:00
PROVIDERS: Family Provider Family Medicine; PCP Family Medicine; Referring Provider Physician Assistant; Visit Provider Physician Assistant
DX: M25.562 Pain in left knee (principal); Z96.652 Presence of left artificial knee joint
CPT/HCPCS: 36415; 85025; 85652; 86140

== ENCOUNTER → 2019-01-17 13:20 | Outpatient (CLI) | payer MEDICAID, SELFPAY ==
[2019-01-17 13:17] VITALS: BMI 39.1
--- NOTE | 2019-01-17 13:22 | RAD_ITS ---
STUDY: X-RAY - LEFT KNEE REASON FOR EXAM: Postoperative check. TECHNIQUE: 4 view(s) of the knee. COMPARISON: Radiographs 01/01/2019. FINDINGS: There is a total knee arthroplasty without evidence of complication. There is anterior soft tissue swelling. RAD/Knee 4 or More Views IMPRESSION: Uncomplicated left total knee arthroplasty. Electronically Signed: Ruben Ng MD at 15:06 EDT Tel , Service support ,
== END ==
PROVIDERS: Family Provider Family Medicine; PCP Family Medicine; Referring Provider Orthopaedic Surgery; Visit Provider Orthopaedic Surgery
DX: Z96.652 Presence of left artificial knee joint (principal)
CPT/HCPCS: 73564

== ENCOUNTER 2019-02-08 12:00 | Outpatient (RCR) | payer MEDICAID, SELFPAY ==
[2019-01-17 13:35] VITALS: BMI 39.1
--- NOTE | 2019-01-21 17:09 | HP.PTEVAL_ITS ---
Patient's Visit Information WILLA MACKAY is a 53 year old F referred to Physical Therapy by Dina Mullen DO with a diagnosis of L TKA. Date of Evaluation: 01/21/19 Physical Therapist: Krishna Palacio PT, ATC - Visit Plan Frequency: 2-3x /Week Duration: 4-6 Weeks Plan: L LE stretching and strengthening, balance and proprio, PROM/AROM/MOBS, core strengthening, Nustep, and HEP - Subjective Findings: DOS: 01/01/19. Pt reports she had a L TKA performed at that time secondary to so much pain. Pt reports she is sl glad to have had the surgery. Pt reports she has nearly no pain and notes she hasnt even had to take pain meds. Pt reports she has had home health for the past 3 weeks. Pt reports she still has some difficulty with stair negotiation. Pt reports her bedroom is upstairs in her house. Pt reports some numbness in L Lateral knee, but no other tingling or numbness in L knee. Pt reports she has sleep difficulty secondary to L hip pain. 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 0/10 pain at rest, 3/10 at worst. - Pain L knee Pain Intensity (Out of 10): 0 Pain Intensity Range: 3 - Objective Neuro: B LE sensation is WNL to lgiht touch. B achilles reflex 1/3. ROM: R knee 0-133, L knee 0-120 degrees. MMT: R knee 5/5 throughout, L knee 4/5 throughout. Girth at joint line: knee 43 cm, L knee 45 cm. Gait: Pt was able to ambulate 680 feet until L hip pain caused her to stop - Goals Goal 1:: Decrease L knee pain x 50% to aid with ambulation Goal Time Frame: 4-6 Weeks Goal 2:: Increase L knee strength x 1 grade to aid with stair negotiation Goal Time Frame: 4-6 Weeks Goal 3:: Pt will be able to ambulate 1000 feet without limitation to aid with community ambulation Goal Time Frame: 4-6 Weeks Goal 4:: I with HEP Goal Time Frame: 4-6 Weeks - Rehabilitation Potential Physical Therapy Diagnosis: L knee pain, weakness, and intol for prolonged ambulation secondary to L TKA Rehabilitation Potential: Good - Anticipated Interventions Patient/Client Instruction: Educate patient on: Condition, Plan of Care For the Purpose of:: To improve self management Therapeutic Exercise to Include: Strength training, Endurance training, Balance training, Flexibilty training, Passive ROM, Active ROM, Dynamic Lumbar Stabilization For the Purpose of:: To decrease pain, To increase ROM, To improve muscle performance and motor function Cryotherapy (ice pack, ice massage): Yes For the Purpose of:: To decrease pain Thank you for the opportunity to evaluate your patient. For Medicare and Medicare HMO plans, please review the plan of care and approve it. It will need to be FAXED BACK to us at [phone] for Medicare purposes. For Medicare only, by signing this I certify the plan of care. Please let me know if there are questions or concerns regarding this plan of care. Physician Signature: Date:
--- NOTE | 2019-04-19 12:24 | HP.PT.NRP ---
HP - Discharge Summary (1) - Patient Information WILLA MACKAY was seen in my office for initial evaluation on 01/21/19. The following Plan of Care was established for this patient: Initial Frequency: 2-3x /Week Initial Duration: 4-6 Weeks - Anticipated Interventions Patient/Client Instruction: Educate patient on: Condition, Plan of Care For the Purpose of:: To improve self management Therapeutic Exercise to Include: Strength training, Endurance training, Balance training, Flexibilty training, Passive ROM, Active ROM, Dynamic Lumbar Stabilization For the Purpose of:: To decrease pain, To increase ROM, To improve muscle performance and motor function Cryotherapy (ice pack, ice massage): Yes For the Purpose of:: To decrease pain This patient was last seen in our office . Pertinent comments regarding their Physical therapy will appear below: Pt was treated for 6 PT visits for L TKA through the date of 01/29/19. Pt has not returned through todays date and is discontinued at this time. At this point I will be discontinuing this patient from physical therapy. I would be happy to see this patient again in the future if found appropriate by the physician. Thank you! Krishna Palacio, PT, ATC
== END 2019-02-08 19:00 | disposition home or self-care (01) ==
LOC: PT 12:00
PROVIDERS: Family Provider Family Medicine; PCP Family Medicine; Referring Provider Orthopaedic Surgery; Visit Provider Orthopaedic Surgery
DX: Z96.652 Presence of left artificial knee joint (principal); M76.32 Iliotibial band syndrome, left leg
CPT/HCPCS: 97110; 97161

== ENCOUNTER → 2019-10-18 11:06 | Outpatient (CLI) | payer OTHER, SELFPAY ==
[2019-05-15 08:05] VITALS: BMI 39.1
--- NOTE | 2019-10-18 11:07 | RAD_ITS ---
STUDY: X-RAY - LEFT KNEE REASON FOR EXAM: Female, 53 years old. INCREASING PAIN AND SWELLING X3 WEEKS, NKI -- HX TKA X1 YR AGO TECHNIQUE: 4 view(s) of the knee. COMPARISON: Comparison is made with prior examination dated January 17, 2019. FINDINGS: Normal visualized distal femur. Normal visualized proximal tibia and fibula. Normal proximal tibiofibular articulation. The patient is status post total knee replacement. There is good alignment. Mild soft tissue swelling and small joint effusion. RAD/Knee 4 or More Views IMPRESSION: Stable appearance of the total knee replacement. Mild degree of soft tissue swelling and tiny joint effusion. Electronically Signed: Tim Dewitt, at 14:23 EDT , Service support ,
== END ==
PROVIDERS: PCP Family Medicine; Referring Provider Orthopaedic Surgery; Visit Provider Orthopaedic Surgery
DX: Z96.652 Presence of left artificial knee joint (principal)
CPT/HCPCS: 73564

== ENCOUNTER → 2020-03-10 12:49 | Outpatient (CLI) | payer MEDICAID, SELFPAY ==
[2019-10-18 11:13] VITALS: BMI 39.1
[2020-03-10 15:38] LABS: Uric Acid 6.2 mg/dL (2.6-6.0)
== END ==
PROVIDERS: PCP Family Medicine; Referring Provider Family Medicine; Visit Provider Family Medicine
DX: M10.9 Gout, unspecified (principal)
CPT/HCPCS: 36415; 84550

== ENCOUNTER 2020-03-12 09:56 | Emergency (ER) | payer MEDICAID, SELFPAY ==
[2019-10-18 11:13] VITALS: BMI 39.1
[2020-03-12 09:57] VITALS: BP 145/60; PULSE 82; RESP 17; TEMP 36.4; O2SAT 97; BMI 40.5
--- NOTE | 2020-03-12 10:08 | RAD_ITS ---
STUDY: X-RAY - RIGHT RADIUS AND ULNA REASON FOR EXAM: Female, 54 years old. FELL THIS MORNING -- right arm pain TECHNIQUE: 2 view(s) of the forearm. COMPARISON: None. FINDINGS: There is no demonstrated soft tissue swelling. There is nondisplaced fracture of the radius head. Normal visualized ulna. RAD/Forearm 2 Views IMPRESSION: There is nondisplaced fracture of the radius head. Electronically Signed: John Mcclendon, at 10:52 EDT Tel , Service support ,
--- NOTE | 2020-03-12 10:08 | RAD_ITS ---
STUDY: X-RAY - RIGHT WRIST REASON FOR EXAM: Female, 54 years old. FELL THIS MORNING -- right arm pain TECHNIQUE: 3 view(s) of the wrist were obtained. COMPARISON: None. FINDINGS: Normal visualized distal radius and ulna. Normal radiocarpal articulation. Normal distal radioulnar articulation. Normal carpal bones. Normal carpal articulations. There is degenerative arthrosis of the carpometacarpal articulation of the thumb. Normal second through fifth carpometacarpal articulations. Normal visualized metacarpal bones. The soft tissue structures are unremarkable. RAD/Wrist min 3 Views IMPRESSION: There is degenerative arthrosis of the carpometacarpal articulation of the thumb. Electronically Signed: John Mcclendon, at 10:53 EDT Tel , Service support ,
--- NOTE | 2020-03-12 10:15 | ED.DCSUM_ITS ---
History of Present Illness Chief Complaint: Upper Extremity Injury Informant: Patient Narrative: Patient is a 54-year-old female with a past medical history of hypertension who presents to the ED for injury to her right wrist and forearm. She states that she tripped over concrete. She had her arm outstretched when she landed on it. She is complaining of right wrist pain as well as proximal right forearm pain. She does have abrasion over her left knee and left elbow as well. She denies h itting her head or losing consciousness. She is not on any anticoagulation or antiplatelet medications. She denies any neck pain or back pain. No chest pain, shortness of breath or abdominal pain. She was placed in a sling and ice has been applied to the forearm. She states she initially thought she had some numbness in her hand but this has since resolved. Movement does make the pain worse. She has not tried taking anything for this. Patient states she is ambidextrous. Past Medical History - Allergies and Home Meds Allergies/Adverse Reactions: Allergies codeine Allergy (Verified 03/12/20 09:57) Rash Primary Care Physician: Dina Mullen DO [STAFF PHYSICIAN] - 3-5 Days Kaleb Steele MD [Primary Care Provider] - Prior records reviewed: Yes Past Medical History: - - Hypertension Surgical History: - Smoking Status: Never smoker - Family History Maternal Family History: Family History (Last Updated 10/12/18 @ 14:14 by Soila Rojas) Other COPD (chronic obstructive pulmonary disease) Seizures Family History: Reports: Hypertension, - - Thyroid disease. Paternal Family History: Family History (Last Updated 10/12/18 @ 14:14 by Soila Rojas) Other COPD (chronic obstructive pulmonary disease) Seizures Family History: Reports: No pertinent history Review of Systems General: Denies: Chills, Fever, Sweats Eyes: Denies: Visual changes - bilaterally, Diplopia ENT: Denies: Rhinorrhea, Sore throat Cardiovascular: Denies: Chest pain, Palpitations Respiratory: Denies: Dyspnea, Cough, Dyspnea on exertion Gastrointestinal: Denies: Abdominal pain, Nausea, Vomiting Genitourinary: Denies: Dysuria, Hematuria, Frequency Musculoskeletal: Reports: Extremity Pain. Denies: Neck pain, Back pain Skin: Reports: Abrasions. Denies: Rash, Wounds Neurological: Denies: Headache, Weakness, Numbness Hematologic: Denies: Easy bruising, Easy bleeding Physical Exam Vital Signs/Narrative: Vital Signs Temp Pulse Resp BP Pulse Ox 03/12/20 09:57 97.6 F L 82 17 145/60 H 97 General: Well nourished, Well developed, No Acute Distress Head: Normocephalic, Atraumatic Eyes: Perrl, EOMI ENT: Moist mucous membranes, No rhinorrhea Neck: Supple, Nontender Cardiovascular: Regular rate, Regular rhythm, No murmurs Respiratory: No distress, CTA bilaterally, Chest nontender Abdomen: Soft, Nontender, Nondistended, Normal bowel sounds Back: Nontender, Normal Inspection Extremities: Nontender, No edema, - - Patient does have pain at the anatomical snuffbox. There is swelling around this area. She is neurovascularly intact with brisk capillary refill. 2+ radial pulse. Good range of motion of wrist, elbow and shoulder. No pain going up the humerus. Skin: Normal color, No rash Neurological: Alert, Oriented x3, Cranial nerves II-XII grossly intact, Normal Strength, Normal Sensation Psychological: Normal affect, Normal Mood Diagnostic/Tx/Re-eval - Medical Decision Making Patient presents to the ED for FOOSH injury. X-rays being obtained of the wrist and forearm. No evidence of fracture in the wrist. There was a nondisplaced radial head fracture. She is placed in sling and splint. We will have her follow-up with orthopedic surgery. She does have pain in the anatomical snuffbox although no evidence of scaphoid fracture. Will recommend she brings this up to her orthopedic surgeon as well for reevaluation. Warning signs and symptoms for which to return to the emergency department are reviewed with her. She otherwise is to ice the arm, rest. At this time will discharge home in stable condition. She understands and is agreeable with this plan. Procedures - Upper Extremity Splints Upper Extremity Splint: Orthoglass, - - Sugar tong Splint Fabrication: Fabricated Location: Right - Patient neurovascularly intact pre-and post splinting. She is placed in sling after splint was placed. ED Disposition - Plan for ED Patient: Disposition: Home or Assisted Living Diagnosis: Radial head fracture, closed Instructions: ED Fx Radial Head Referrals: Kaleb Steele MD [Primary Care Provider] - Dina Mullen DO [STAFF PHYSICIAN] - 3-5 Days
--- NOTE | 2020-03-12 10:23 | RAD_ITS ---
STUDY: X-RAY - RIGHT ELBOW REASON FOR EXAM: Female, 54 years old. FELL THIS MORNING -- right arm pain TECHNIQUE: 3 view(s) of the elbow. COMPARISON: None. FINDINGS: There is nondisplaced fracture of the radius head. Normal radiocapitellar and ulnotrochlear articulations. The soft tissue structures are unremarkable. RAD/Elbow min 3 Views IMPRESSION: There is nondisplaced fracture of the radius head. Electronically Signed: John Mcclendon, at 10:52 EDT Tel , Service support ,
[2020-03-12] MEDS: Acetaminophen 325 MG Tablet 650 MG PO (10:25)
[2020-03-12 11:39] VITALS: PULSE 74; RESP 16; O2SAT 98
== END 2020-03-12 11:40 | disposition home or self-care (01) ==
PROVIDERS: Emergency Provider Emergency Medicine; PCP Family Medicine
DX: S52.124A Nondisplaced fracture of head of right radius, initial encounter for closed fracture (principal); S80.212A Abrasion, left knee, initial encounter; S50.312A Abrasion of left elbow, initial encounter; W01.10XA Fall on same level from slipping, tripping and stumbling with subsequent striking against unspecified object, initial encounter; Y93.9 Activity, unspecified; Y92.9 Unspecified place or not applicable; Y99.9 Unspecified external cause status; I10 Essential (primary) hypertension; Z79.899 Other long term (current) drug therapy
CPT/HCPCS: 29125; 73080; 73090; 73110; 99283

== ENCOUNTER → 2020-03-13 11:43 | Outpatient (CLI) | payer MEDICAID, SELFPAY ==
[2019-10-18 11:13] VITALS: BMI 39.1
[2020-03-13 07:50] VITALS: BMI 40.5
--- NOTE | 2020-03-13 11:45 | US_ITS ---
HISTORY: LUMP LEFT THIGH EXAMINATION: US Lower Extremity, limited, joint or other nonvascular extremity TECHNIQUE: Fisher scale color Doppler images were obtained over the left thigh in the area of the lump. 22 images. 3 cine clips. Findings: The area scanned is normal. Fat is present. No vascular malformation is perceived. US/Ext Non Vasc Limited/Soft Tiss IMPRESSION: Normal. It is feasible that the lump is a lipoma. at [id number] Reported and signed by: Paul Segovia MD Electronically Signed: Paul Segovia MD at 5:56 EDT Tel , Service support ,
== END ==
PROVIDERS: PCP Family Medicine; Referring Provider Family Medicine; Visit Provider Family Medicine
DX: R22.42 Localized swelling, mass and lump, left lower limb (principal)
CPT/HCPCS: 76882

== ENCOUNTER → 2020-03-20 09:27 | Outpatient (CLI) | payer MEDICAID, SELFPAY ==
[2020-03-20 07:56] VITALS: BMI 40.5
--- NOTE | 2020-03-20 09:27 | RAD_ITS ---
STUDY: X-RAY - RIGHT ELBOW REASON FOR EXAM: Female, 54 years old. RADIAL HEAD FX TECHNIQUE: 3 view(s) of the elbow. COMPARISON: 03/12/2020 FINDINGS: Previously noted intra-articular hairline fracture of the radial head is again demonstrated with associated joint effusion. There appears to be very early callus deposition consistent with early healing. On the current study on the oblique view, there also appears to be a nondisplaced fracture of the coronoid process of the ulna. Normal radiocapitellar and ulnotrochlear articulations. . RAD/Elbow min 3 Views IMPRESSION: Early healing intra-articular fracture of the radial head. Nondisplaced fracture of the coronoid process of the ulna. Small joint effusion Electronically Signed: Greg Dailey MD at 17:00 EDT , Service support ,
== END ==
PROVIDERS: PCP Family Medicine; Referring Provider Orthopaedic Surgery; Visit Provider Orthopaedic Surgery
DX: S52.123A Displaced fracture of head of unspecified radius, initial encounter for closed fracture (principal); X58.XXXA Exposure to other specified factors, initial encounter; Y93.9 Activity, unspecified; Y92.9 Unspecified place or not applicable; Y99.9 Unspecified external cause status
CPT/HCPCS: 73080

== ENCOUNTER → 2020-06-19 09:53 | Outpatient (CLI) | payer BC, MEDICAID, SELFPAY ==
[2020-03-27 10:10] VITALS: BMI 40.5
[2020-06-19 12:25] LABS: Erythrocyte Sedimentation Rate 19 mm/hr (0-30); Hematocrit 42.6 % (37-47); Hemoglobin 13.5 g/dL (12.0-15.0); Mean Corp Hgb Conc 31.7 g/dL (32-36); Mean Corpuscular Volume 100.9 fL (81-99); Mean Platelet Vol. 8.9 fl (6.2-12.0); Platelet Count 244 K/mm3 (150-450); RBC Distribution Width CV 13.3 % (11.6-14.6); RBC Distribution Width SD 49.2 fl (35.1-43.9); Red Blood Count 4.22 M/mm3 (4.2-5.4); White Blood Count 4.6 K/mm3 (4.4-11.0)
[2020-06-19 12:42] LABS: ALB/GLOB Ratio 0.9 RATIO (0.9-2.4); AST(SGOT) 20 U/L (15-37); Alanine Aminotransfer ALT/SGPT 24 U/L (13-56); Albumin, Serum 3.7 g/dL (3.2-5.0); Alkaline Phosphatase 82 U/L (45-117); Anion Gap 3 (5-15); BUN 21 mg/dL (7-18); BUN/Creat Ratio 20.2 RATIO (10-20); Calcium,Total 9.3 mg/dL (8.5-10.1); Chloride 106 mmol/L (98-107); Cholesterol 227 mg/dL (200); Creatinine, Serum 1.04 mg/dL (0.55-1.02); EST Glomerular Filtration Rate 59 mL/min (>60); Est Glom Filt Rate - Afr Amer 71 mL/min (>60); Globulin 4.1 g/dL (2.2-4.2); Glucose 106 mg/dL (74-106); High Density Lipoprotein 65 mg/dL; Potassium 4.5 mmol/L (3.5-5.1); Protein, Total 7.8 g/dL (6.4-8.2); Sodium Level 138 mmol/L (136-145); Thyroid Stim Hormone (TSH) 2.92 uIU/mL (0.358-3.74); Triglycerides 179 mg/dL; Very Low Density Lipoprotein 36 mg/dL (5-40)
[2020-06-19 14:47] LABS: Vitamin D,25 Hydroxy 27.7 ng/mL
== END ==
PROVIDERS: PCP Family Medicine; Referring Provider Family Medicine; Visit Provider Family Medicine
DX: M79.89 Other specified soft tissue disorders (principal); M06.9 Rheumatoid arthritis, unspecified; I10 Essential (primary) hypertension
CPT/HCPCS: 36415; 80053; 80061; 82306; 84443; 85027; 85652

== ENCOUNTER 2020-08-06 14:38 | Emergency (ER) | payer BC, MEDICAID, SELFPAY ==
[2020-03-27 10:10] VITALS: BMI 40.5
[2020-08-06] VITALS (7 sets, daily range): BP systolic 107–115; BP diastolic 52–79; PULSE 66–76; RESP 15–18; TEMP 36.6–36.8; O2SAT 98; BMI 38.0
--- NOTE | 2020-08-06 15:09 | ED.VIS.GEN ---
History of Present Illness Chief Complaint: Shortness of Breath Informant: Patient Onset: Days Context: Gradual Onset Current Severity: Mild Maximum Severity: Moderate Narrative: Patient presents secondary to fatigue, generalized weakness, shortness of breath, cough. Patient states she developed the symptoms on the . She went to urgent care and was tested for Covid on that date which returned negative. Patient denies fever or loss of smell and taste. She has poor appetite. She denies vomiting or diarrhea. - Past Medical History (1) Gout Status: Chronic (2) Hypertension Status: Chronic (3) Rheumatoid arthritis Status: Chronic Past Medical History - Allergies and Home Meds Allergies/Adverse Reactions: Allergies codeine Allergy (Verified 08/06/20 14:42) Rash Primary Care Physician: Kaleb Steele MD [Primary Care Provider] - Prior records reviewed: Yes Surgical History: - Smoking Status: Former smoker - Family History Maternal Family History: Family History (Last Updated 10/12/18 @ 14:14 by Soila Rojas) Other COPD (chronic obstructive pulmonary disease) Seizures Family History: Reports: Hypertension, - - Thyroid disease. Paternal Family History: Family History (Last Updated 10/12/18 @ 14:14 by Soila Rojas) Other COPD (chronic obstructive pulmonary disease) Seizures Family History: Reports: No pertinent history Review of Systems General: Denies: Chills, Fever Eyes: Denies: Visual changes - bilaterally ENT: Denies: Bilateral ear pain Cardiovascular: Denies: Chest pain Respiratory: Reports: Dyspnea, Cough. Denies: Sputum Gastrointestinal: Denies: Abdominal pain, Vomiting, Diarrhea Genitourinary: Denies: Dysuria Musculoskeletal: Reports: Myalgias Skin: Denies: Rash, Wounds Neurological: Denies: Headache Hematologic: Denies: Easy bruising, Easy bleeding Allergy: Denies: Uticaria Physical Exam Vital Signs/Narrative: Vital Signs Temp Pulse Resp BP Pulse Ox 08/06/20 14:39 98 F 76 18 107/75 98 Inital Vital Signs reviewed: Yes General: Well nourished, Well developed Head: Normocephalic ENT: Moist mucous membranes Neck: Supple Cardiovascular: Regular rate, Regular rhythm Respiratory: No distress, CTA bilaterally Abdomen: Soft, Nontender, Normal bowel sounds Back: Nontender Extremities: Nontender Skin: Normal color Neurological: Alert, Oriented x3 Psychological: Normal affect Diagnostic/Tx/Re-eval Chest X-Ray - ED: 1 View, Read by ED Physician, No Infiltrates Impressions Chest X-Ray 08/06/20 15:20 IMPRESSION: Elevation of the right hemidiaphragm. The lungs are clear. Electronically Signed: Tim Dewitt, at 15:40 EST , Service support , 08/06/20 15:20 Chest 1 View (Portable) [RAD] Stat 08/06/20 15:30 Mucosa - Nose SARS-CoV-2 Antigen (Rapid) - Final Laboratory Results 08/06/20 08/06/20 08/06/20 15:30 15:30 15:45 WBC 4.9 RBC 4.42 Hgb 14.6 Hct 44.0 MCV 99.5 H MCH 33.0 H MCHC 33.2 RDW Std Deviation 48.8 H RDW Coeff of Nathan 13.2 Plt Count 244 MPV 9.6 Immature Gran % (Auto) 0.200 Neut % (Auto) 73.0 H Lymph % (Auto) 16.3 L [place] % (Auto) 7.5 Eos % (Auto) 2.6 Baso % (Auto) 0.4 Absolute Neuts (auto) 3.6 Absolute Lymphs (auto) 0.80 L Nucleated RBC % 0 Differential Comment SCANNED Sodium 134 L Potassium 5.4 H Chloride 105 Carbon Dioxide 27.0 Anion Gap 2 L BUN 17 Creatinine 1.20 H Estim Creat Clear Calc 57.96 Est GFR (MDRD) Af Amer 60 Est GFR (MDRD) Non-Af 50 L BUN/Creatinine Ratio 14.2 Glucose 78 Calcium 9.1 Urine Color Yellow Urine Clarity Sl. Cloudy Urine pH 6.5 Ur Specific [place] 1.010 Urine Protein Negative Urine Glucose (UA) Normal Urine Ketones Negative Urine Occult Blood Negative Urine Nitrite Negative Urine Bilirubin Negative Urine Urobilinogen Normal Ur Leukocyte Esterase 500 H Urine RBC 0 SEEN Urine WBC 10-25 SEEN Ur Squamous Epith Cells 0-5 SEEN Amorphous Sediment 1+ URATE Urine Bacteria 0 SEEN Urine Mucus 0 SEEN - Medical Decision Making Portable chest x-ray per my interpretation reveals no focal infiltrate. Radiologist interpretation is reviewed. Blood work is largely unremarkable. Urinalysis does reveal leukocyte esterase and white cells but no bacteria. She will be covered with 3 days of antibiotics as this could represent early infection. Covid swab is negative. Viral respiratory panel is pending at this time. Patient will be given a liter of IV fluids and then discharged home. If she has anything positive on her viral panel she will be called and updated. ED Disposition - Plan for ED Patient: Disposition: Home or Assisted Living Diagnosis: Viral syndrome, UTI (urinary tract infection) Instructions: ED Viral Syndrome (Adult) Prescriptions: Smz/Tmp Ds [Bactrim Ds] 1 tab PO BID #6 tab Transmission Status: Pending to [id number] Referrals: Kaleb Steele MD [Primary Care Provider] - 1 Week if not improving
--- NOTE | 2020-08-06 15:20 | RAD_ITS ---
STUDY: X-RAY CHEST REASON FOR EXAM: Female, 54 years old. SOB, FATIGUE, WEAKNESS. TECHNIQUE: Single AP portable view of the chest. COMPARISON: Comparison is made with prior study dated 07/20/2016. FINDINGS: Elevation of the right hemidiaphragm. The lungs are clear. There is no demonstrated pleural abnormality. Normal size heart. Normal mediastinum and da. Normal visualized pulmonary arteries. Normal visualized aortic arch and descending thoracic aorta. Normal visualized thoracic spine. Normal visualized ribs, clavicles, and shoulders. There is no demonstrated abnormality of the visualized soft tissue structures of the upper abdomen. RAD/Chest 1 View (Portable) IMPRESSION: Elevation of the right hemidiaphragm. The lungs are clear. Electronically Signed: Tim Dewitt, at 15:40 EST , Service support ,
[2020-08-06 15:50] LABS: Absolute Neutrophil Count 3.6 X10^3/uL (2.0-7.7); Basophil# 0.02 X10^3/uL; Basophil% 0.4 % (0-1); Eosinophil# 0.13 X10^3/uL; Eosinophils% 2.6 % (0-5); Hemoglobin 14.6 g/dL (12.0-15.0); Lymphocyte % 16.3 % (19-41); Mean Corp Hgb Conc 33.2 g/dL (32-36); Mean Corpuscular Volume 99.5 fL (81-99); Mean Platelet Vol. 9.6 fl (6.2-12.0); Monocyte# 0.37 X10^3/uL; Monocyte% 7.5 % (0-10); NRBC Flagged by Analyzer 0 % (0-5); Neutrophil # 3.59 X10^3/uL (2.7-7.7); POSITIVE COUNT YES; Platelet Count 244 K/mm3 (150-450); RBC Distribution Width CV 13.2 % (11.6-14.6); RBC Distribution Width SD 48.8 fl (35.1-43.9); Red Blood Count 4.42 M/mm3 (4.2-5.4); White Blood Count 4.9 K/mm3 (4.4-11.0)
[2020-08-06 15:54] LABS: Differential Indicated SCAN CRITERIA MET
[2020-08-06 15:57] LABS: Bacteria 0 SEEN /hpf (None Seen); Mucous, Urine 0 SEEN /hpf (<or=2+); Red Blood Cells-Urine 0 SEEN /hpf (0-5)
[2020-08-06 16:02] LABS: Color, Urine Yellow (Yellow); Glucose, Dipstick Normal (Normal); Ketone-Dipstick Negative (Negative); Leukocyte Esterase-Dipstick 500 /ul (Negative); Nitrite-Dipstick Negative (Negative); Occult Blood-Urine Negative /ul (Negative); Protein-Dipstick Negative (Negative); Urine Bilirubin Dipstick Negative (Negative); Urine Clarity Sl. Cloudy (Clear); Urine Urobilinogen Normal (Normal); Urine pH 6.5 (5.0 - 8.0)
[2020-08-06 16:22] LABS: Anion Gap 2 (5-15); BUN 17 mg/dL (7-18); BUN/Creat Ratio 14.2 RATIO (10-20); Calcium,Total 9.1 mg/dL (8.5-10.1); Chloride 105 mmol/L (98-107); EST Glomerular Filtration Rate 50 mL/min (>60); Est Glom Filt Rate - Afr Amer 60 mL/min (>60); Estimated Creatinine Clearance 57.96 ml/min; Glucose 78 mg/dL (74-106); Potassium 5.4 mmol/L (3.5-5.1); Sodium Level 134 mmol/L (136-145)
[2020-08-06 16:30] LABS: Differential Comment SCANNED
[2020-08-06 16:33] LABS: Amorphous Sediment 1+ URATE; Squamous Epithelial Cells - UA 0-5 SEEN /hpf (5-10); White Blood Cells 10-25 SEEN /hpf (0-5)
[2020-08-06] MEDS: 0.9% Normal Saline 1,000 ML 999 ML IV (17:03)
[2020-08-06] MEDS: Smz/Tmp Ds Tablet 1 TABLET PO (18:43)
--- NOTE | 2020-08-06 19:58 | ED.RN ---
PATIENT CALLED TO NOTIFY PATIENT OF RESPIRATORY PANEL RESULTS PER DR. CROW
== END 2020-08-06 18:45 | disposition home or self-care (01) ==
PROVIDERS: Emergency Provider Emergency Medicine; PCP Family Medicine
DX: N39.0 Urinary tract infection, site not specified (principal); B34.9 Viral infection, unspecified; Z20.822 Contact with and (suspected) exposure to COVID-19; I10 Essential (primary) hypertension; M06.9 Rheumatoid arthritis, unspecified; M10.9 Gout, unspecified; R06.02 Shortness of breath; R53.83 Other fatigue; R53.1 Weakness; Z79.899 Other long term (current) drug therapy; Z87.891 Personal history of nicotine dependence
CPT/HCPCS: 71045; 80048; 81001; 85025; 87426; 87633; 96360; 96361; 99285; A4216

== ENCOUNTER 2020-08-07 17:41 | Emergency (ER) | payer BC, MEDICAID, SELFPAY ==
[2020-08-06 14:39] VITALS: BMI 38.0
[2020-08-07] VITALS (11 sets, daily range): BP systolic 105–141; BP diastolic 56–81; PULSE 84–105; RESP 14–22; TEMP 37.2–39.6; O2SAT 89–96; BMI 37.5
--- NOTE | 2020-08-07 17:47 | EKG12_ITS ---
Test Reason : SOB Blood Pressure : / mmHG Vent. Rate : 096 BPM Atrial Rate : 096 BPM P-R Int : 148 ms QRS Dur : 098 ms QT Int : 350 ms P-R-T Axes : 010 045 018 degrees QTc Int : 442 ms Normal sinus rhythm Normal ECG Confirmed by AJITH STAFFORD, DRE ([id number]), digital editor AYLEEN ADAM ([id number]) on 08/12/2020 6:42:23 AM Referred By: MI Confirmed By:DRE CANSECO MD
[2020-08-07] MEDS: Morphine 4 MG/ML Syringe IV ×2 (18:35→20:13)
[2020-08-07] MEDS: Ondansetron 4 MG/2 ML Vial IV ×2 (18:35→22:04)
[2020-08-07] MEDS: Acetaminophen 500 MG Tablet 1000 MG PO (18:35)
[2020-08-07 18:49] LABS: Absolute Lymphocyte Count 0.07 X10^3/uL (0.83-4.51); Absolute Neutrophil Count 5.9 X10^3/uL (2.0-7.7); Basophil# 0.01 X10^3/uL; Basophil% 0.2 % (0-1); Eosinophil# 0.06 X10^3/uL; Hematocrit 40.6 % (37-47); Hemoglobin 13.6 g/dL (12.0-15.0); Lymphocyte # 0.07 X10^3/ul (4.0); Lymphocyte % 1.1 % (19-41); Mean Corp Hgb Conc 33.5 g/dL (32-36); Mean Corpuscular Hgb 32.4 pg (27.0-32.0); Mean Corpuscular Volume 96.7 fL (81-99); Mean Platelet Vol. 8.8 fl (6.2-12.0); Monocyte# 0.12 X10^3/uL; Monocyte% 1.9 % (0-10); NRBC Flagged by Analyzer 0 % (0-5); Neutrophil # 5.94 X10^3/uL (2.7-7.7); Neutrophil % 95.5 % (47-70); POSITIVE DIFFERENTIAL YES; Platelet Count 156 K/mm3 (150-450); RBC Distribution Width CV 13.2 % (11.6-14.6); RBC Distribution Width SD 46.6 fl (35.1-43.9); White Blood Count 6.2 K/mm3 (4.4-11.0)
[2020-08-07 18:53] LABS: Differential Indicated SCAN CRITERIA MET
--- NOTE | 2020-08-07 18:55 | CT_ITS ---
STUDY: CT BRAIN WITHOUT CONTRAST REASON FOR EXAM: Female, 54 years old. Headache fever nausea cough RADIATION DOSAGE (If Supplied By Facility): CTDIvol = ( 44.99 ) mGy, DLP = ( 829.85 ) mGycm TECHNIQUE: Transaxial CT imaging of the brain was performed without administration of intravenous contrast material. Individualized dose optimization techniques were used for this CT. COMPARISON: No relevant priors. FINDINGS: Brain parenchyma is without focal lesions, mass effect, acute intracranial hemorrhage, extra parenchymal fluid collections, hydrocephalus or herniation. The skull is intact. CT/Brain/Head without Contrast IMPRESSION: 1. Normal CT brain. Electronically Signed: Sandrine Hill MD at 19:06 EST Tel , Service support ,
--- NOTE | 2020-08-07 18:56 | RAD_ITS ---
STUDY: X-RAY CHEST REASON FOR EXAM: Female, 54 years old. FEVER, HEADACHE, COUGH, NAUSEA. SYMPTOMS STARTED A WEEK AGO. NEGATIVE COVID TEST YESTERDAY. TECHNIQUE: Frontal view of the chest COMPARISON: 06 August 2020 FINDINGS: The lungs are clear and expanded. There is no demonstrated pleural abnormality. Normal size heart. Normal mediastinum and da. Normal visualized pulmonary arteries. Normal visualized aortic arch and descending thoracic aorta. Normal visualized thoracic spine. Normal visualized ribs, clavicles, and shoulders. There is no demonstrated abnormality of the visualized soft tissue structures of the upper abdomen. RAD/Chest 1 View (Portable) IMPRESSION: Normal x-ray examination of the chest. Electronically Signed: Sandrine Hill MD at 19:11 EST Tel , Service support ,
[2020-08-07 18:59] LABS: International Normalized Ratio 1.1; Prothrombin Time (Protime)PT. 13.8 SECONDS (11.7-14.9)
[2020-08-07 19:00] LABS: Partial Thromboplast Time 32.3 Seconds (24.1-36.2)
[2020-08-07 19:15] LABS: Lactic Acid 1.6 mmol/L (0.4-1.9)
[2020-08-07 19:16] LABS: ALB/GLOB Ratio 0.9 RATIO (0.9-2.4); AST(SGOT) 87 U/L (15-37); Alanine Aminotransfer ALT/SGPT 64 U/L (13-56); Albumin, Serum 3.4 g/dL (3.2-5.0); Alkaline Phosphatase 97 U/L (45-117); Anion Gap 7 (5-15); BUN 15 mg/dL (7-18); BUN/Creat Ratio 10.7 RATIO (10-20); Calcium,Total 8.7 mg/dL (8.5-10.1); Chloride 106 mmol/L (98-107); EST Glomerular Filtration Rate 42 mL/min (>60); Est Glom Filt Rate - Afr Amer 50 mL/min (>60); Estimated Creatinine Clearance 49.68 ml/min; Globulin 3.8 g/dL (2.2-4.2); Glucose 112 mg/dL (74-106); Potassium 3.8 mmol/L (3.5-5.1); Protein, Total 7.2 g/dL (6.4-8.2); Sodium Level 134 mmol/L (136-145)
--- NOTE | 2020-08-07 21:11 | ED.VISSUMM ---
- ER Visit Summary Date of Service: 08/07/20 Chief Complaint: Fever History of Present Illness: The patient is a [address] Zafar. She reports that she has not felt well for the past week. States that she was here yesterday and had a negative Covid test. She did have white cells in her urine so she was placed on Bactrim. She reports that today she has developed a fever to 103 degrees. Patient does report that she has a little bit of cough. She denies any sore throat or ear pain. No chest pain or shortness of breath. She is been nausea and vomited twice. No blood in her emesis. No abdominal pain or diarrhea. No dysuria or frequency. She does complain of diffuse myalgias. She has had a headache that is 9 out of 10 severity. Is a diffuse sharp pain. She reports is been present for the past week. She does not have a history of similar headaches. She denies any vertigo, numbness, or weakness. Physical Examination: Vitals: Stable. Afebrile. General: Well-nourished and well-developed. Head: Normocephalic atraumatic. Neck: Supple, no lymphadenopathy. No JVD. Nontender. Cardiovascular: Regular rate and rhythm. No murmurs. Respiratory: No respiratory distress. Clear to auscultation bilaterally. Abdominal: Soft, nontender, nondistended, normal bowel sounds. No guarding, rebound, or peritoneal signs. Back: Nontender. Extremities: Nontender, no edema. Skin: Normal color, no rash. Neurologic: Alert and oriented ?3. Cranial nerves II through XII are intact. Normal strength and sensation. Psych: Normal affect. Test Results: EKG is sinus at [address] changes. Lactic acid is 1.6. UA shows leukocytes, blood, ketones. There is rare bacteria. This was a cath specimen. It was sent for culture. LFTs show an ALT of 64 and AST of 87. INR is 1.1. PTT is 32.3. Chem-7 shows a sodium 134, glucose 112, creatinine 1.4. CBC shows stable neutrophils 96 lymphocytes 1. Influenza is negative. Covid is negative. Clinical Impression(s) from Imaging Studies Brain CT 08/07/20 18:55 IMPRESSION: 1. Normal CT brain. Electronically Signed: Sandrine Hill MD at 19:06 EST Tel , Service support , Chest X-Ray 08/07/20 18:56 IMPRESSION: Normal x-ray examination of the chest. Electronically Signed: Sandrine Hill MD at 19:11 EST Tel , Service support , Emergency Department Course and Treatment: Patient had an IV placed. She was given a liter of normal saline. I had a prolonged discussion with her about the possibility of a lumbar puncture to rule out meningitis. She has refused this. She was given morphine, Zofran IV and Tylenol p.o. Treatment Plan: At this time even if the patient had meningitis I suspect that it would be viral in etiology. She will be discharged with instructions to push fluids. Use Tylenol and/or ibuprofen for fever, myalgias, and pain. She is also given a prescription for Zofran and 10 [place]. Follow-up with her primary care physician in 3 days as previously scheduled. Continue her Bactrim. Return to the emergency department for any worsening symptoms. Disposition: To home in improved and stable condition. Impression: 1. Fever, uncertain cause. 2. Acute kidney injury. 3. Dehydration. This note was generated with [employer] dictation software. It may contain incorrect words, spelling, and punctuation that were not noted in review of the chart prior to signing ED Disposition - Plan for ED Patient: Instructions: ED FUO Adult Prescriptions: Hydrocodone Bitart/Apap 5-325 [[place] 5MG-325MG] 1 tablet PO Q4H PRN PRN 2 Days #10 tablet PRN Reason: Pain Ondansetron [Zofran Odt] 4 mg PO Q8H PRN PRN #10 tablet PRN Reason: Nausea Referrals: Kaleb Steele MD [Primary Care Provider] - Keep Juan appointment
[2020-08-07 21:35] LABS: Red Blood Cells-Urine 0 SEEN /hpf (0-5); White Blood Cells 0 SEEN /hpf (0-5)
[2020-08-07 21:38] LABS: Color, Urine Yellow (Yellow); Glucose, Dipstick Normal (Normal); Ketone-Dipstick 5 mg/dl (Negative); Leukocyte Esterase-Dipstick 25 /ul (Negative); Nitrite-Dipstick Negative (Negative); Occult Blood-Urine 10 /ul (Negative); Protein-Dipstick 30 mg/dl (Negative); Urine Clarity Clear (Clear); Urine Urobilinogen 1 mg/dl (Normal)
[2020-08-07 21:40] LABS: Urine Bilirubin Dipstick 1 mg/dL (Negative)
[2020-08-07 22:02] LABS: Bacteria RARE /hpf (None Seen); Mucous, Urine 1+ /hpf (<or=2+); Squamous Epithelial Cells - UA 0-5 SEEN /hpf (5-10)
== END 2020-08-07 23:11 | disposition home or self-care (01) ==
LOC: ED 18:31
PROVIDERS: Emergency Provider Emergency Medicine; PCP Family Medicine
DX: R50.9 Fever, unspecified (principal); N17.9 Acute kidney failure, unspecified; E86.0 Dehydration; I10 Essential (primary) hypertension; M06.9 Rheumatoid arthritis, unspecified; Z20.822 Contact with and (suspected) exposure to COVID-19; R11.2 Nausea with vomiting, unspecified; R05 Cough; Z72.0 Tobacco use; Z79.899 Other long term (current) drug therapy
CPT/HCPCS: 70450; 71045; 80053; 81001; 83605; 85025; 85610; 85730; 87040; 87086; 87426; 87804; 93005; 96374; 96375; 96376; 99285; J7030; J2405

== ENCOUNTER → 2020-08-10 11:54 | Outpatient (CLI) | payer BC, MEDICAID, SELFPAY ==
[2020-08-07 17:41] VITALS: BMI 37.5
[2020-08-10 15:54] LABS: Erythrocyte Sedimentation Rate 55 mm/hr (0-30)
[2020-08-10 15:55] LABS: Absolute Lymphocyte Count 0.42 X10^3/uL (0.83-4.51); Absolute Neutrophil Count 2.5 X10^3/uL (2.0-7.7); Basophil# 0.01 X10^3/uL; Basophil% 0.3 % (0-1); Eosinophil# 0.19 X10^3/uL; Eosinophils% 5.5 % (0-5); Hemoglobin 13.9 g/dL (12.0-15.0); Lymphocyte # 0.42 X10^3/ul (4.0); Lymphocyte % 12.1 % (19-41); Mean Corp Hgb Conc 33.1 g/dL (32-36); Mean Corpuscular Volume 96.8 fL (81-99); Mean Platelet Vol. 9.8 fl (6.2-12.0); Monocyte# 0.31 X10^3/uL; Monocyte% 8.9 % (0-10); NRBC Flagged by Analyzer 0 % (0-5); Neutrophil # 2.53 X10^3/uL (2.7-7.7); Neutrophil % 72.9 % (47-70); POSITIVE DIFFERENTIAL YES; Platelet Count 190 K/mm3 (150-450); RBC Distribution Width CV 13.1 % (11.6-14.6); RBC Distribution Width SD 46.8 fl (35.1-43.9); Red Blood Count 4.34 M/mm3 (4.2-5.4); White Blood Count 3.5 K/mm3 (4.4-11.0)
[2020-08-10 15:57] LABS: Differential Indicated SCAN CRITERIA MET
[2020-08-10 16:19] LABS: BUN 14 mg/dL (7-18); Creatinine, Serum 1.15 mg/dL (0.55-1.02); Glucose 99 mg/dL (74-106)
[2020-08-10 16:20] LABS: ALB/GLOB Ratio 0.8 RATIO (0.9-2.4); AST(SGOT) 96 U/L (15-37); Alanine Aminotransfer ALT/SGPT 242 U/L (13-56); Albumin, Serum 3.3 g/dL (3.2-5.0); Alkaline Phosphatase 238 U/L (45-117); Anion Gap 8 (5-15); BUN/Creat Ratio 12.2 RATIO (10-20); Calcium,Total 9.3 mg/dL (8.5-10.1); Chloride 107 mmol/L (98-107); EST Glomerular Filtration Rate 52 mL/min (>60); Est Glom Filt Rate - Afr Amer 63 mL/min (>60); Globulin 4.3 g/dL (2.2-4.2); Potassium 4.1 mmol/L (3.5-5.1); Protein, Total 7.6 g/dL (6.4-8.2); Sodium Level 136 mmol/L (136-145)
[2020-08-11 12:25] LABS: Pathologist Review Reviewed
[2020-08-12 20:23] LABS: EBV Acute VCA IgM < 36.0 U/mL (0.0-35.9)
== END ==
PROVIDERS: PCP Family Medicine; Referring Provider Family Medicine; Visit Provider Family Medicine
DX: B34.9 Viral infection, unspecified (principal); R79.89 Other specified abnormal findings of blood chemistry
CPT/HCPCS: 36415; 80053; 85025; 85652; 86140; 86664; 86665

== ENCOUNTER → 2020-08-13 15:33 | Outpatient (CLI) | payer BC, MEDICAID, SELFPAY ==
[2020-08-07 17:41] VITALS: BMI 37.5
--- NOTE | 2020-08-13 15:55 | RAD_ITS ---
STUDY: X-RAY CHEST REASON FOR EXAM: Female, 54 years old. COUGH AND COLD SX FOR 14 DAYS. HAS HAD SEVERAL NEGATIVE COVID AND FLU TESTS. TECHNIQUE: Frontal and lateral views COMPARISON: 08/07/2020 FINDINGS: The lungs are clear and expanded. There is no demonstrated pleural abnormality. Normal size heart. Normal mediastinum and da. Normal visualized pulmonary arteries. Normal visualized aortic arch and descending thoracic aorta. Normal visualized thoracic spine. Normal visualized ribs, clavicles, and shoulders. There is no demonstrated abnormality of the visualized soft tissue structures of the upper abdomen. RAD/Chest PA and Lateral IMPRESSION: Normal x-ray examination of the chest. Electronically Signed: Jordy Engle DO at 18:25 EST Tel [phone], Service support ,
[2020-08-13 17:30] LABS: Absolute Lymphocyte Count 1.26 X10^3/uL (0.83-4.51); Absolute Neutrophil Count 4.1 X10^3/uL (2.0-7.7); Basophil# 0.03 X10^3/uL; Basophil% 0.5 % (0-1); Eosinophil# 0.14 X10^3/uL; Eosinophils% 2.3 % (0-5); Hematocrit 40.5 % (37-47); Hemoglobin 13.1 g/dL (12.0-15.0); Lymphocyte # 1.26 X10^3/ul (4.0); Lymphocyte % 21.1 % (19-41); Mean Corp Hgb Conc 32.3 g/dL (32-36); Mean Platelet Vol. 8.9 fl (6.2-12.0); Monocyte# 0.44 X10^3/uL; Monocyte% 7.4 % (0-10); NRBC Flagged by Analyzer 0 % (0-5); Neutrophil # 4.08 X10^3/uL (2.7-7.7); Neutrophil % 68.2 % (47-70); Platelet Count 295 K/mm3 (150-450); RBC Distribution Width CV 13.2 % (11.6-14.6); RBC Distribution Width SD 48.7 fl (35.1-43.9); Red Blood Count 4.09 M/mm3 (4.2-5.4)
[2020-08-13 18:21] LABS: ALB/GLOB Ratio 0.8 RATIO (0.9-2.4); AST(SGOT) 61 U/L (15-37); Alanine Aminotransfer ALT/SGPT 141 U/L (13-56); Albumin, Serum 3.4 g/dL (3.2-5.0); Alkaline Phosphatase 178 U/L (45-117); Anion Gap 7 (5-15); BUN 21 mg/dL (7-18); BUN/Creat Ratio 15.9 RATIO (10-20); Calcium,Total 8.5 mg/dL (8.5-10.1); Chloride 105 mmol/L (98-107); Creatinine, Serum 1.32 mg/dL (0.55-1.02); EST Glomerular Filtration Rate 45 mL/min (>60); Est Glom Filt Rate - Afr Amer 54 mL/min (>60); Glucose 99 mg/dL (74-106); Protein, Total 7.4 g/dL (6.4-8.2); Sodium Level 137 mmol/L (136-145)
[2020-08-14 16:45] LABS: GGTP 197 U/L (5-55)
== END ==
PROVIDERS: PCP Family Medicine; Referring Provider Family Medicine; Visit Provider Family Medicine
DX: G44.83 Primary cough headache (principal); R79.89 Other specified abnormal findings of blood chemistry
CPT/HCPCS: 36415; 71046; 80053; 82977; 85025; 86140; 86141

== ENCOUNTER → 2020-08-25 16:49 | Outpatient (CLI) | payer BC, MEDICAID, SELFPAY ==
[2020-08-07 17:41] VITALS: BMI 37.5
--- NOTE | 2020-08-25 16:51 | CT_ITS ---
STUDY: CT ABDOMEN WITH CONTRAST REASON FOR EXAM: Female, 54 years old. ELEVATED LFT''S, RECENT COVID SYMPTOMS 2 WKS AGO-BUT HAD 3 NEG COVID TEST, C/O RUQ PAIN, FATIGUE, SURG-APPENDECTOMY,CHOLECYSTECTOMY,HYSTERECTOMY RADIATION DOSAGE (If Supplied By Facility): CTDIvol = ( 16.77 ) mGy, DLP = ( 991.33 ) mGycm TECHNIQUE: Transaxial images were obtained post I.V. administration of IV 100mL Isovue-300, and oral contrast. Sagittal and coronal images were reconstructed. Individualized dose optimization techniques were used for this CT. COMPARISON: None. FINDINGS: There are no demonstrated pulmonary infiltrates within the visualized lung bases. There is a calcified pulmonary granuloma in the visualized right lower lobe. There are calcified granulomas in the visualized mediastinum and hilar regions. The visualized portions of the heart are within normal limits. Normal liver. There are surgical clips in the gallbladder fossa consistent with a prior cholecystectomy. There are calcified granulomas in the spleen. Normal pancreas. Normal bilateral adrenal glands. Normal right kidney. Normal left kidney. Normal visualized stomach. Normal small intestine. There are a few colonic diverticula consistent with diverticulosis. There is non-visualization of the appendix, consistent with given history of prior appendectomy. Normal abdominal aorta. Normal inferior vena cava. Normal retroperitoneum. There is a small umbilical hernia containing fat, but no bowel. There are multilevel degenerative changes visualized spine. CT/Abdomen WITH IV Contrast IMPRESSION: Previous cholecystectomy and appendectomy. Old granulomatous disease. Mild colonic diverticulosis, without evidence for acute diverticulitis. No evidence for acute pathology. No bile duct dilatation. Electronically Signed: Darrel Danielle MD at 5:30 EST , Service support ,
== END ==
PROVIDERS: PCP Family Medicine; Referring Provider Family Medicine; Visit Provider Family Medicine
DX: R79.89 Other specified abnormal findings of blood chemistry (principal)
CPT/HCPCS: 74160; Q9967; A4216

== ENCOUNTER → 2020-09-03 14:31 | Outpatient (CLI) | payer BC, MEDICAID, SELFPAY ==
[2020-08-07 17:41] VITALS: BMI 37.5
[2020-09-03 18:11] LABS: ALB/GLOB Ratio 0.9 RATIO (0.9-2.4); AST(SGOT) 18 U/L (15-37); Alanine Aminotransfer ALT/SGPT 27 U/L (13-56); Albumin, Serum 3.5 g/dL (3.2-5.0); Alkaline Phosphatase 80 U/L (45-117); Anion Gap 3 (5-15); BUN 20 mg/dL (7-18); BUN/Creat Ratio 11.9 RATIO (10-20); Calcium,Total 8.8 mg/dL (8.5-10.1); Chloride 106 mmol/L (98-107); Creatinine, Serum 1.68 mg/dL (0.55-1.02); EST Glomerular Filtration Rate 34 mL/min (>60); Est Glom Filt Rate - Afr Amer 41 mL/min (>60); Globulin 3.8 g/dL (2.2-4.2); Glucose 86 mg/dL (74-106); Potassium 4.4 mmol/L (3.5-5.1); Protein, Total 7.3 g/dL (6.4-8.2); Sodium Level 140 mmol/L (136-145)
[2020-09-03 18:30] LABS: SARS-COV-2 TOTAL ABS Nonreactive (Nonreactive)
== END ==
PROVIDERS: PCP Family Medicine; Referring Provider Family Medicine; Visit Provider Family Medicine
DX: N28.9 Disorder of kidney and ureter, unspecified (principal); G44.83 Primary cough headache
CPT/HCPCS: 36415; 80053; 86140; 86769

== ENCOUNTER → 2020-10-29 14:19 | Outpatient (CLI) | payer BC, MEDICAID, SELFPAY ==
[2020-08-07 17:41] VITALS: BMI 37.5
--- NOTE | 2020-10-29 14:23 | RAD_ITS ---
INDICATION: FOOT FRACTURE EXAMINATION/TECHNIQUE: X-RAY - LEFT XR Foot Min 3 Views COMPARISON: None. FINDINGS: No acute fracture or malalignment. No blastic or lytic lesions. No degenerative changes are seen. The soft tissues are unremarkable. Dorsal and plantar heel spurs. RAD/Foot min 3 Views IMPRESSION: No acute radiographic abnormalities. Electronically Signed: Be Doshi MD at 22:17 EDT Tel , Service support ,
== END ==
PROVIDERS: PCP Family Medicine; Referring Provider Family Medicine; Visit Provider Family Medicine
DX: S92.902A Unspecified fracture of left foot, initial encounter for closed fracture (principal); X58.XXXA Exposure to other specified factors, initial encounter; Y93.9 Activity, unspecified; Y92.9 Unspecified place or not applicable; Y99.9 Unspecified external cause status
CPT/HCPCS: 73630

== ENCOUNTER 2021-02-10 16:38 | Emergency (ER) | payer BC, MEDICAID, SELFPAY ==
[2020-08-07 17:41] VITALS: BMI 37.5
[2021-02-10 16:39] VITALS: BP 135/97; PULSE 98; RESP 18; TEMP 36.2; O2SAT 97; BMI 39.6
--- NOTE | 2021-02-10 17:10 | EDS_ITS ---
HPI History of Present Illness Chief Complaint: Lower Extremity Injury Informant: patient Onset/Context/Timing Onset: Weeks (1-2) Context: Gradual Onset Timing: Continuous Quality of Pain: Aching and Burning Location: left lower leg Current Severity: Moderate Maximum Severity: Severe Worsened by: weight bearing Relieved by: rest Associated Symptoms Associated Symptoms: Positive for Parasthesia (mild tingling from knee to foot, same distribution of pain; no weakness, no bowel/bladder dysfunction); Negative for Weakness and Loss of Funtion Narrative Narrative: Patient has had gradual onset of pain in her left lower leg, states it started in the medial aspect of the left knee, and has now involve the entire medial calf and down to the medial arch of her foot. It is burning and tingling some. Sitting is not the most uncomfortable position, weightbearing is. She does have back pain and states she has sciatica but this does not feel like it, but this is the first time it has ever gone below the knee. She denies any known injury, no fevers or chills or systemic symptoms or problems urinating or with bowel movements. [facility] Medical History (Updated 02/10/21 @ 19:[address] Anthony Woody MD) Arthritis Asthma Hypertension Knee pain Home Medications acebutolol 200 mg PO DAILY 07/21/13 [History Last Taken 01/01/19 06:30] citalopram 40 mg PO DAILY 09/23/18 [History Last Taken Unknown] cholecalciferol (vitamin D3) 2,000 unit PO DAILY 12/25/18 [History Last Taken Unknown] allopurinol 100 mg tablet 200 mg PO DAILY tab 03/13/20 [History Last Taken Unknown] diclofenac sodium 1 % topical gel 4 g TOPICAL .COMPLEX #150 g 03/20/20 [Rx Last Taken Unknown] hydroxychloroquine 200 mg PO BID 08/06/20 [History Last Taken Unknown] meloxicam 30 mg PO DAILY 08/06/20 [History Last Taken Unknown] sulfamethoxazole-trimethoprim 1 tab PO BID #6 tab 08/06/20 [Rx Last Taken Unknown] ondansetron 4 mg PO Q8H PRN PRN #10 tab 08/07/20 [Rx Last Taken Unknown] hydrocodone-acetaminophen 1 tab PO Q4H PRN PRN 2 Days #10 tablet 02/10/21 [Rx Last Taken Unknown] Allergy/AdvReac Type Severity Reaction Status Date / Time codeine Allergy Rash Verified 02/10/21 16:39 Family History (Updated 10/12/18 @ 14:14 by Soila Rojas) Other COPD (chronic obstructive pulmonary disease) Seizures Surgical History History of total knee arthroplasty Social History Smoking Status: Current every day smoker tobacco type: pipe ROS ROS ED Constitutional Constitutional ED: Denies chills or fever(s) Cardiovascular Cardiovascular: Denies dyspnea, edema or orthopnea Respiratory/Chest Respiratory/Chest: Denies orthopnea Genitourinary Genitourinary ED: Denies urinary incontinence Musculoskeletal Musculoskeletal: Reports back pain and extremity pain; Denies neck pain Integumentary Denies Abrasions, rash or wounds Neurologic Neurologic: Reports paresthesias; Denies numbness or weakness EXAM Physical Exam Const Vital Signs: 02/10/21 16:39 Temperature 97.2 F L Temperature Source Temporal Pulse Rate 98 Respiratory Rate 18 Blood Pressure 135/97 H Blood Pressure Mean 109 Pulse Ox 97 Oxygen Delivery Method Room Air Positive well nourished and well developed General Appearance ED: well developed and NAD Neck full ROM and supple Cardio Cardio Narrative: 2+/4 bilateral dorsalis pedis pulses, with brisk cap refill all toes. Back/Spine normal ROM and normal to inspection Back/Spine Narrative: Mild tenderness left lumbosacral paraspinal musculature and SI joint area. Limited by obesity. Extremity normal to inspection, full ROM and no pedal edema Extremity Narrative: Only very mild tenderness throughout the medial aspect of the left lower leg, from the medial distal thigh down to the ankle. Bilateral straight leg raises are negative for radicular symptoms. Normal reflexes except for the left knee which is diminished due to history of total knee arthroplasty, well-healed surgical scar. No signs of erythema, no palpable cords throughout the extremity. Mild medial calf tenderness without palpable cords or asymmetry. Neuro oriented x3, no focal motor deficits and no sensory deficits noted Neuro Narrative: No clonus. Downgoing toes bilaterally. Reflexes unremarkable see above. Sensorium / Orientation: alert Psych mental status grossly normal and thought process normal Skin no wounds Rashes: no rashes MDM MDM MDM Narrative Medical decision making narrative: Patient is a normal Doppler ruling out DVT in the left lower extremity, and her x-rays are normal of the affected area. This is an atypical history and exam, difficult to assess whether this is truly sciatica or musculoskeletal in etiology. All of her compartments are very soft and her left lower extremity looks and feels normal. She has good circulation with blood flow to the foot and this is not claudication. She was complaining of severe pain so she was given a dose of morphine, however she can range the extremity without any difficulty and I see no emergency at this time. I feel she is stable to follow-up as an outpatient, will prescribe her some analgesics and offer crutches if she needs them. Radiography Diagnostic Testing: Radiology Impression Tibia/Fibula X-Ray 02/10/21 17:10 IMPRESSION: No acute osseous process Electronically Signed: Christian Gore MD at 18:35 EDT , Service support , Venous Duplex 02/10/21 17:14 IMPRESSION: Normal venous Doppler ultrasound of the left lower extremity. Electronically Signed: Christian Gore MD at 18:48 EDT , Service support , Discharge Plan Triage Chief Complaint: Lower Extremity Injury ED Provider: Anthony Woody Dx/Rx/DC Orders Clinical Impression: Acute pain of left lower extremity Instructions: Sciatica, ED Knee Sprain Prescriptions: New hydrocodone-acetaminophen [hydrocodone-acetaminophen] 1 TABLET tablet 1 tab PO Q4H PRN PRN (Reason: Pain) 2 Days Qty: 10 RF: 0 No Action acebutolol 200 MG capsule 200 mg PO DAILY RF: 0 allopurinol 100 mg tablet 200 mg PO DAILY RF: 0 citalopram 40 MG tablet 40 mg PO DAILY RF: 0 cholecalciferol (vitamin D3) 2,000 UNIT capsule 2,000 unit PO DAILY RF: 0 meloxicam 15 MG tablet 30 mg PO DAILY RF: 0 hydroxychloroquine 200 MG tablet 200 mg PO BID RF: 0 sulfamethoxazole-trimethoprim 1 TABLET tablet 1 tab PO BID Qty: 6 RF: 0 ondansetron 4 MG tablet 4 mg PO Q8H PRN PRN (Reason: Nausea) Qty: 10 RF: 0 diclofenac sodium [Voltaren] 1 % gel 4 g TOPICAL .COMPLEX Qty: 150 RF: 0 Primary Care Provider: Kaleb Steele Referrals: Kaleb Steele MD [Primary Care Provider] - 3-5 Days (Call for appointment to be seen for follow-up) Disposition Disposition: Home, Self Care
--- NOTE | 2021-02-10 17:10 | RAD_ITS ---
STUDY: X-RAY - LEFT TIBIA AND FIBULA REASON FOR EXAM: Female, 55 years old. pain TECHNIQUE: 3 view(s) of the tibia and fibula were obtained. COMPARISON: None. FINDINGS: Knee prosthetic components are present without complications. No visualized fracture. No other abnormality of the bony structures is seen. Mild soft tissue swelling is seen on the lateral side of the ankle. RAD/Tibia & Fibula 2 Views IMPRESSION: No acute osseous process Electronically Signed: Christian Gore MD at 18:35 EDT , Service support ,
--- NOTE | 2021-02-10 17:14 | US_ITS ---
STUDY: VENOUS DOPPLER ULTRASOUND - LEFT LOWER EXTREMITY REASON FOR EXAM: Female, 55 years old. LT LEG PAIN TECHNIQUE: Ultrasound evaluation of the deep vein system to include fisher-scale imaging and compression was performed. Fisher-scale imaging and Doppler sonographic evaluation, including duplex spectral analysis and qualitative color flow sonography, was performed. COMPARISON: None. FINDINGS: Common Femoral Vein: Normal compression, spontaneity and augmentation. Normal color Doppler. Common Femoral Vein/Greater Saphenous Junction: Normal compression, spontaneity and augmentation. Normal color Doppler. Deep Femoral Vein: Normal compression, spontaneity and augmentation. Normal color Doppler. Femoral Proximal: Normal compression, spontaneity and augmentation. Normal color Doppler. Femoral Middle: Normal compression, spontaneity and augmentation. Normal color Doppler. Femoral Distal: Normal compression, spontaneity and augmentation. Normal color Doppler. Popliteal Vein: Normal compression, spontaneity and augmentation. Normal color Doppler. Posterior Tibial Vein: Normal compression, spontaneity and augmentation. Normal color Doppler. Peroneal Vein: Normal compression, spontaneity and augmentation. Normal color Doppler. The right common femoral vein was evaluated and is normal. A tiny Linares''s cyst is present in the left knee. US/Venous Duplex Imag/Limited/Uni IMPRESSION: Normal venous Doppler ultrasound of the left lower extremity. Electronically Signed: Christian Gore MD at 18:48 EDT , Service support ,
[2021-02-10] MEDS: Morphine 4 MG/ML Syringe IV (17:37)
[2021-02-10 20:00] VITALS: BP 133/76; PULSE 74; RESP 16
== END 2021-02-10 20:13 | disposition home or self-care (01) ==
PROVIDERS: Emergency Provider Emergency Medicine; PCP Family Medicine
DX: M79.662 Pain in left lower leg (principal); R20.2 Paresthesia of skin; M54.9 Dorsalgia, unspecified; I10 Essential (primary) hypertension; J45.909 Unspecified asthma, uncomplicated; F17.290 Nicotine dependence, other tobacco product, uncomplicated; Z79.1 Long term (current) use of non-steroidal anti-inflammatories (NSAID); Z79.899 Other long term (current) drug therapy
CPT/HCPCS: 73590; 93971; 96374; 99283

== ENCOUNTER → 2021-07-07 | Outpatient (CLI) | payer BC, MEDICAID, SELFPAY | END | disposition home or self-care (01) | LOC: LABSPEC 07-08 08:03 | PROVIDERS: PCP Family Medicine; Referring Provider Family Medicine; Visit Provider Family Medicine | DX: Z20.822 Contact with and (suspected) exposure to COVID-19 (principal) | CPT/HCPCS: 87635; U0005; U0003 ==

== ENCOUNTER 2021-11-24 12:16 | Outpatient (CLI) | payer BC, MEDICAID, SELFPAY ==
[2021-11-24 15:10] LABS: Absolute Lymphocyte Count 0.91 X10^3/uL (0.83-4.51); Absolute Neutrophil Count 3.6 X10^3/uL (2.0-7.7); Basophil# 0.03 X10^3/uL; Basophil% 0.6 % (0-1); Eosinophil# 0.19 X10^3/uL; Eosinophils% 3.7 % (0-5); Hematocrit 43.9 % (37-47); Hemoglobin 14.3 g/dL (12.0-15.0); Lymphocyte # 0.91 X10^3/ul (0.83-4.51); Lymphocyte % 17.9 % (19-41); Mean Corp Hgb Conc 32.6 g/dL (32-36); Mean Corpuscular Hgb 32.4 pg (27.0-32.0); Mean Corpuscular Volume 99.3 fL (81-99); Mean Platelet Vol. 8.9 fl (6.2-12.0); Monocyte# 0.38 X10^3/uL; Monocyte% 7.5 % (0-10); NRBC Flagged by Analyzer 0 % (0-5); Neutrophil # 3.55 X10^3/uL (2.7-7.7); Neutrophil % 70.1 % (47-70); Platelet Count 249 K/mm3 (150-450); RBC Distribution Width SD 51.3 fl (35.1-43.9); Red Blood Count 4.42 M/mm3 (4.2-5.4); White Blood Count 5.1 K/mm3 (4.4-11.0)
[2021-11-24 15:31] LABS: Vitamin D,25 Hydroxy 23.5 ng/mL
[2021-11-24 15:33] LABS: ALB/GLOB Ratio 0.9 RATIO (0.9-2.4); AST(SGOT) 21 U/L (15-37); Alanine Aminotransfer ALT/SGPT 26 U/L (13-56); Albumin, Serum 3.7 g/dL (3.2-5.0); Alkaline Phosphatase 75 U/L (45-117); Anion Gap 5 (5-15); BUN 12 mg/dL (7-18); BUN/Creat Ratio 12.5 RATIO (10-20); Calcium,Total 9.4 mg/dL (8.5-10.1); Chloride 104 mmol/L (98-107); Cholesterol 222 mg/dL (200); Creatinine, Serum 0.96 mg/dL (0.55-1.02); EST Glomerular Filtration Rate 64 mL/min (>60); Est Glom Filt Rate - Afr Amer 78 mL/min (>60); Globulin 4.1 g/dL (2.2-4.2); Glucose 99 mg/dL (74-106); High Density Lipoprotein 58 mg/dL; Potassium 4.8 mmol/L (3.5-5.1); Protein, Total 7.8 g/dL (6.4-8.2); Sodium Level 137 mmol/L (136-145); Triglycerides 167 mg/dL; Very Low Density Lipoprotein 33 mg/dL (5-40)
== END 2021-11-24 23:59 | disposition home or self-care (01) ==
LOC: MFPLAB 12:18
PROVIDERS: PCP Family Medicine; Referring Provider Family Medicine; Visit Provider Family Medicine
DX: I12.9 Hypertensive chronic kidney disease with stage 1 through stage 4 chronic kidney disease, or unspecified chronic kidney disease (principal); N18.9 Chronic kidney disease, unspecified; M10.9 Gout, unspecified; K76.0 Fatty (change of) liver, not elsewhere classified
CPT/HCPCS: 36415; 80053; 80061; 82306; 84550; 85025

== ENCOUNTER → 2022-10-19 | Outpatient (CLI) | payer BC, MEDICAID, SELFPAY ==
--- NOTE | 2022-10-19 14:34 | BI_ITS ---
MAMMOGRAPHY - BILATERAL SCREENING REASON FOR EXAM: Female, 56 years old. Routine annual screening examination. PERTINENT HISTORY: Non-contributory. TECHNIQUE: Digital bilateral breast vivek (3D mammographic acquisition) in the CC and MLO projections. 2-D mediolateral oblique (MLO) and craniocaudad (CC) views of both breasts were obtained. CAD: Full Field Digital Mammography with Computer Added Detection was performed. COMPARISON: No comparison mammograms available at this time. If any prior films become available, an addendum to this report can be generated. FINDINGS: Breast Composition: There are scattered areas of fibroglandular density. There are no dominant masses or suspicious calcifications. No other significant abnormalities are identified. BI/SCRN MAMM (CAD)W/VIVEK BILAT IMPRESSION: Negative screening mammogram. Yearly followup mammogram recommended. (A) ASSESSMENT CATEGORY: BIRADS Category 1: Negative. A letter regarding these results will be sent to the patient by the facility within 30 days. Approximately 10% of breast cancers are not detected by mammography. A normal mammogram should not delay biopsy of a clinically suspicious abnormality. [id number] Electronically Signed: Tim Dewitt MD at 15:24 EDT ,
== END | disposition home or self-care (01) ==
PROVIDERS: PCP Family Medicine; Visit Provider Family Medicine
DX: Z12.31 Encounter for screening mammogram for malignant neoplasm of breast (principal)
CPT/HCPCS: 77063; 77067

== ENCOUNTER → 2022-11-23 | Outpatient (CLI) | payer BC, MEDICAID, SELFPAY ==
--- NOTE | 2022-11-23 13:57 | RAD_ITS ---
STUDY: X-RAY - RIGHT ELBOW REASON FOR EXAM: Female, 57 years old. PAIN TECHNIQUE: 3 view(s) of the elbow. COMPARISON: March 27, 2020. FINDINGS: Normal visualized humerus, radius and ulna. Normal radiocapitellar and ulnotrochlear articulations. The soft tissue structures are unremarkable. RAD/Elbow min 3 Views IMPRESSION: Healing fracture radial head Electronically Signed: Mir Guzman MD at 21:33 EDT ,
[2022-11-23 15:25] LABS: Hematocrit 45.4 % (37-47); Mean Corpuscular Hgb 32.8 pg (27.0-32.0); Mean Corpuscular Volume 99.3 fL (81-99); Mean Platelet Vol. 8.9 fl (6.2-12.0); Platelet Count 255 K/mm3 (150-450); RBC Distribution Width CV 13.4 % (11.6-14.6); Red Blood Count 4.57 M/mm3 (4.2-5.4); White Blood Count 5.8 K/mm3 (4.4-11.0)
[2022-11-23 16:02] LABS: AST(SGOT) 27 U/L (15-37); Alanine Aminotransfer ALT/SGPT 25 U/L (13-56); Albumin, Serum 3.8 g/dL (3.2-5.0); Alkaline Phosphatase 67 U/L (45-117); Anion Gap 8 (5-15); BUN 10 mg/dL (7-18); BUN/Creat Ratio 11.5 RATIO (10-20); Calcium,Total 9.7 mg/dL (8.5-10.1); Chloride 104 mmol/L (98-107); Cholesterol 212 mg/dL (200); Creatinine, Serum 0.87 mg/dL (0.55-1.02); EST Glomerular Filtration Rate 72 mL/min (>60); Est Glom Filt Rate - Afr Amer 87 mL/min (>60); Globulin 3.7 g/dL (2.2-4.2); Glucose 85 mg/dL (74-106); High Density Lipoprotein 61 mg/dL; Potassium 5.2 mmol/L (3.5-5.1); Protein, Total 7.5 g/dL (6.4-8.2); Sodium Level 139 mmol/L (136-145); Thyroid Stim Hormone (TSH) 1.46 uIU/mL (0.358-3.74); Triglycerides 128 mg/dL; Very Low Density Lipoprotein 26 mg/dL (5-40)
[2022-11-23 16:12] LABS: Hemoglobin A1c 5.4 % (3.8-5.6)
== END | disposition home or self-care (01) ==
LOC: MTRAD 13:54
PROVIDERS: PCP Family Medicine; Referring Provider Family Medicine; Visit Provider Family Medicine
DX: K30 Functional dyspepsia (principal); R73.01 Impaired fasting glucose; E55.9 Vitamin D deficiency, unspecified; M25.521 Pain in right elbow
CPT/HCPCS: 36415; 73080; 80053; 80061; 82306; 83036; 84443; 85027

== ENCOUNTER → 2023-06-14 | Outpatient (CLI) | payer BC, SELFPAY | END | disposition home or self-care (01) | LOC: LABSPEC 14:15 | PROVIDERS: PCP Family Medicine; Visit Provider Family Medicine | DX: R19.7 Diarrhea, unspecified (principal) | CPT/HCPCS: 82274; 83630; 87177; 87209; 87493; 87506 ==

== ENCOUNTER → 2024-02-28 | Outpatient (CLI) | payer BC, SELFPAY ==
--- NOTE | 2024-02-28 | TISS_PTH ---
PATIENT: WILLA MACKAY LOC: [facility] U#:[id number] AGE/SX: 58/F ROOM: RE02/28/[address]: Dr. Be Steele MD : 1965 BED: DIS: 02/28/2024 SPEC #: [id number] RECD: 02/29/24 08:36 STATUS: SONYA JONES #: [id number] CATRACHO: 02/28/24 00:[address]: Be Steele DEPT: SURGICAL PATHOLOGY RECD BY: Lisa Gutiérrez Tissues: Skin of forearm, NOS Procedures: Surgery Specimen Level IV HEADER OPERATION: Excision PRE-OP DIAGNOSIS: Basal cell carcinoma? 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 Solar elastosis. See comment. CALEB/ 03/01/2024 COMMENT The tumor measuring 0.5cm width and up to 0.2cm in depth (measured microscopically). Lymph-vascular or perineural invasion is not identified. Case has been reviewed in consultation with Dr. Hurley who concurs with the above diagnosis. IDC:AM MICROSCOPIC DESCRIPTION Slides are reviewed. GROSS DESCRIPTION Received in fixative is one container labeled with the patient's name and designated Right forearm. The specimen consists of a piece of chaudhry-light brown skin ellipse measuring 1.7 x 1.1cm and up to 0.4cm in thickness. There is a chaudhry umbilicated lesion on the surface measuring 0.6 x 0.5cm. The specimen is inked, serially sectioned and submitted entirely in one cassette. CALEB/ 02/29/2024 TC:0 CPT:55944
== END | disposition home or self-care (01) ==
PROVIDERS: PCP Family Medicine; Referring Provider Family Medicine; Visit Provider Family Medicine
DX: C44.622 Squamous cell carcinoma of skin of right upper limb, including shoulder (principal); L57.8 Other skin changes due to chronic exposure to nonionizing radiation
CPT/HCPCS: 88305

== ENCOUNTER 2024-03-13 05:56 | Day surgery (SDC) | payer BC, SELFPAY ==
[2024-03-13] VITALS (9 sets, daily range): BP systolic 75–125; BP diastolic 57–84; PULSE 70–77; RESP 16; TEMP 36.4–36.8; O2SAT 96–100; BMI 33.5
[2024-03-13] MEDS: Lactated Ringers 1,000 ML 15 ML IV (06:15)
--- NOTE | 2024-03-13 07:05 | PCM.PRE.AN2 ---
ASA Classification* ASA Classification ASA Classification: 2 Assessment & Plan Anesthesia* Anesthesia Assessment Anesthesia Assessment: Discussed sedation and/or anesthesia options, risks, benefits, and alternatives with patient/parents/legal guardian/POA. Questions invited. The patient/parents/legal guardian/POA seems to understand and agrees to proceed with anesthesia plan. Reviewed the physical assessment, medical history, allergy history and patient home medications list prior to surgery/procedure/anesthetic and documented any changes. Performed airway and anesthesia risk assessments. Anesthesia Type Anesthesia Type: MAC Anesthesia Focused Assessment* Temperature: 97.6 F Pulse Rate: 77 Blood Pressure: 125/77 Respiratory Rate: 16 Pulse Ox: 96 Airway Assessment Mouth opens: >3 cm Mallampati Score: II Focused Labs Anesthesia Preop lab: CBC WBC 5.8 K/mm3 (4.4-11.0) 11/23/22 13:55 RBC 4.57 M/mm3 (4.2-5.4) 11/23/22 13:55 Hgb 15.0 g/dL (12.0-15.0) 11/23/22 13:55 Hct 45.4 % (37-47) 11/23/22 13:55 Plt Count 255 K/mm3 (150-450) 11/23/22 13:55 CHEMISTRY Potassium 5.2 mmol/L (3.5-5.1) H 11/23/22 13:55 Sodium 139 mmol/L (136-145) 11/23/22 13:55 Magnesium 1.7 mg/dL (1.8-2.4) L 01/26/14 10:50 Phosphorus 4.0 mg/dL (2.5-4.9) 03/12/15 04:30 BUN 10 mg/dL (7-18) 11/23/22 13:55 Creatinine 0.87 mg/dL (0.55-1.02) 11/23/22 13:55 Glucose 85 mg/dL (74-106) 11/23/22 13:55 TSH 1.46 uIU/mL (0.358-3.74) 11/23/22 13:55 COAG PT 13.8 SECONDS (11.7-14.9) 08/07/20 18:20 Pre-Assessment Diagnosis/Proposed Procedure Planned Operative Procedure(s): EXCISION RIGHT FOREARM SQUAMOUS CELL CARCINOMA MARGINS AND EXCISION ATYPICAL LESION OF RIGHT FOREARM Anesthesia History Anesthesia History - compliance testing analyst: Anesthesia History - compliance testing analyst Hx Hospitalization No 03/08/24 15:03 Any Problems With Anesthesia No 03/08/24 15:03 Cholinesterase deficiency No 03/08/24 15:03 You/Your Family Experience No 03/08/24 15:03 fever (hyperthermia) with Relationship Recent Exposure to Contagious No 03/13/24 06:29 Disease Does patient have nerve No 03/08/24 15:03 stimulator Patient instructed to have device shut off --Does patient have Pacemaker No 03/13/24 06:29 or ICD? When Was Last Pacemaker Check QUESTION #4 FULL TEXT: You/Your Family Experience fever (hyperthermia) with Anesthesia Last Oral Intake Last Oral intake: Last Oral Intake NPO since 05:00 03/13/24 06:29 Meds taken in AM with sips of Yes 03/13/24 06:29 water? Meds patient instructed to see home med list 03/13/24 06:29 take am of surgery PONV PONV - compliance testing analyst: PONV - compliance testing analyst Female Yes 03/08/24 15:03 HX of Motion Sickness No 03/08/24 15:03 HX of N/V After Surgery No 03/08/24 15:03 Non-Smoker No 03/08/24 15:03 Duration of Surgery greater No 03/08/24 15:03 than 60 minutes Number of Risk Factors 1 03/08/24 15:03 PONV Score Low Risk 03/08/24 15:03 Height & Weight Height & Weight: Anesthesia: Height & Weight Height 5 ft 8 in 03/13/24 06:29 Weight: 100 kg 03/13/24 06:29 Body Mass Index (BMI) 33.5 03/13/24 06:29 Respiratory Assessment Respiratory Assessment - compliance testing analyst: Respiratory Tract Infection Hx - compliance testing analyst Hx Respiratory Tract Infection Yes: COVID/RESOLVED 03/08/24 15:03 STOP Sleep Apnea STOP Sleep Apnea - compliance testing analyst: STOP Sleep Apnea - compliance testing analyst Hx Hypertension Yes: CONTROLLED WITH MED 03/08/24 15:03 Hx Sleep Apnea No 03/08/24 15:03 CPAP No 05/14/19 13:48 BIPAP No 05/14/19 13:48 Do you snore loudly (louder No 03/08/24 15:03 than talking or can be heard Do you often feel tired/ No 03/08/24 15:03 fatigued/ sleepy during daytime? Has anyone observed you stop No 03/08/24 15:03 breathing during sleep? STOP Results Negative 03/08/24 15:03 QUESTION #5 FULL TEXT : Do you snore loudly (louder than talking or can be heard through closed doors)? 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 Specify any problems Hx of Preganancy in last 3 No 03/08/24 15:03 Months Nurse Filling Out Transfusion DSCHRIBER 03/08/24 15:03 & Questions: Date: 03/08/24 03/08/24 15:03 Time: 15:06 03/08/24 15:03 Patient unable to answer at this time (ie. confused, unrespo /Reproduction History /Reproductive History - compliance testing analyst: /Reproductive Hx- compliance testing analyst Hx Now No 03/08/24 15:03 Gestational Age (in weeks): EDC: Hx Hx Para Hx Section SAB No 03/08/24 15:03 Active Medications Active Medications: Current Medications Generic Name Dose Route Start Last Admin Trade Name Freq PRN Reason Stop Dose Admin Cefazolin Sodium 2 gm/ Sodium 110 mls @ 150 mls/hr 03/13/24 07:30 Chloride IV 03/13/24 08:13 PREOP ONE Lactated Ringer's 1,000 mls @ 15 mls/hr 03/13/24 06:15 03/13/24 06:15 IV 15 mls/hr .Q48H DEEPAK Administration PFSH Medical History Hx of fracture of ankle Wears glasses Cancer Depression Anxiety Alcohol use Rheumatoid arthritis History of renal disease Pulmonary embolism Back pain Injury of head and neck Gastric reflux Smoker Leg cramps History of pain when walking Hypertension Home Medications ?Medication ?Instructions ?Recorded ?Last Taken ?Type citalopram 40 mg tablet 40 mg PO DAILY depression 09/23/18 03/13/24 History allopurinol 100 mg tablet 100 mg PO BID gout 03/13/20 03/13/24 History hydroxychloroquine 200 mg tablet 200 mg PO BID 08/06/20 03/13/24 History acebutolol 200 mg capsule 100 mg PO DAILY blood pressure 03/06/24 03/13/24 History diclofenac sodium 1 % topical gel 4 g topical PRN PRN pain 03/08/24 Unknown History famotidine 20 mg tablet 20 mg PO PRN PRN GERD 03/08/24 03/13/24 History guselkumab 100 mg/mL subcutaneous 100 mg subcut .Q8WEEK 03/08/24 Unknown History auto-injector (Tremfya) Allergy/AdvReac Type Severity Reaction Status Date / Time codeine Allergy Rash Verified 03/13/24 06:24 Family History Father Alcoholism Seizures epilepsy Hypertension Mother Hypertension Other COPD (chronic obstructive pulmonary disease) Surgical History Hx of arthroscopic knee surgery Hx of elbow surgery Hx of appendectomy Hx of hysterectomy Hx laparoscopic cholecystectomy History of total knee arthroplasty Social History Smoking Status: Current every day smoker tobacco type: cigarettes alcohol intake: current details: few times a week substance use type: does not use additional social history: pt denies vaping, denies marijuana use, denies edibles, denies aspirin use uses ibuprofen as needed Review of Systems (Anesthesia) ROS Narrative System reviewed and no additional complaints, except as documented.
[2024-03-13] MEDS: Cefazolin 2 GM in 0.9% Normal Saline (100mL Bag) 100 ML IV (07:35)
[2024-03-13] MEDS: Lidocaine 1% /Epi 1:100 (20ml) 20 ML Vial (07:40)
--- NOTE | 2024-03-13 07:50 | LES_PTH ---
PATIENT: WILLA MACKAY LOC: [facility] [place] U#:[id number] AGE/SX: 58/F ROOM: RE03/13/[address]: Dr. Po Landa MD : 1965 BED: DIS: 03/13/2024 SPEC #: [id number] RECD: 03/13/24 08:40 STATUS: SONYA REFarhana #: [id number] CATRACHO: 03/13/24 07:[address]: Po Landa DEPT: SURGICAL PATHOLOGY RECD BY: Luca Huynh ENTERED: 03/13/24 08:40 SP TYPE: Lesion OTHR DR: Dr. Be Steele MD Tissues: A - Skin of forearm, NOS B - Skin of forearm, NOS Procedures: Frozen Section (charge) Surgery Specimen Level IV HEADER OPERATION: Excision right forearm squamous cell carcinoma margins PRE-OP DIAGNOSIS: Squamous cell carcinoma of right arm TISSUE SUBMITTED: A- Right forearm squamous cell lesion, B- Punch biopsy right forearm FROZEN SECTION DIAGNOSIS Right forearm lesion, excision biopsy: Negative for residual carcinoma. Margins are free. / 03/13/2024 MICROSCOPIC DIAGNOSIS A. Right forearm lesion, excisional biopsy: Negative for residual carcinoma. Solar elastosis. Mild actinic keratosis. Changes consistent with previous biopsy site. B. Right forearm lesion, punch biopsy: Mild solar elastosis. Negative for malignancy. See comment. 03/14/2024 COMMENT Please make reference to previous specimen, [id number] right forearm lesion, excisional biopsy with diagnosis of well to moderately differentiated squamous cell carcinoma. This case has been reviewed in consultation with Dr. Hurley who concurs with the above diagnosis. MICROSCOPIC DESCRIPTION Slides are reviewed. GROSS DESCRIPTION A. Received fresh for frozen section diagnosis labeled with the patient's name is a specimen designated Right forearm squamous cell carcinoma. The specimen consists of a piece of chaudhry-white skin ellipse measuring 3.0 x 1.2 x 0.2cm. The specimen is oriented as short, proximal, long, distal ulnar. The specimen is inked as follows: Proximal-black, distal- blue, dorsal-yellow, ventral- green. The specimen is serially sectioned, submitted entirely for frozen section diagnosis in three cassettes. B. Received in fixative is one container labeled with the patient's name and designated Punch biopsy right forearm. The specimen consists of a punch biopsy of chaudhry-light brown skin measuring 0.4cm in diameter and up to 0.3cm in length. The specimen is inked and submitted entirely in one cassette. 03/13/2024 TC:5 CPT: 67532w0,[id number]
--- NOTE | 2024-03-13 08:23 | PCM.OP.BLANK ---
Operative Report Date of Procedure: 03/13/24 Surgery/Procedure Date: 13 March 2024 Incision/Procedure Start Time: 7:50 am Incision Close/Procedure End Time: 8:28 am PATIENT: Efra Mccallum PRE-OPERATIVE DIAGNOSIS: Right forearm squamous cell carcinoma (SSC) and a forearm lesion POST-OPERATIVE DIAGNOSIS: same PROCEDURE PERFORMED: 1) Excision of right dorsal forearm SSC margins, 5.2 cm x 1.2 cm (for 6 mm circumferential margins around the scar), CPT: 49208 2) Intermediate closure of wound, 5.2 cm, CPT: 19520 3) Punch biopsy pigmented dorsal forearm scar (5 mm punch), CPT:61421 OPERATIVE FINDINGS: Negative frozen sections of the SSC margins INDICATIONS: Gale Mccallum is a 58 yo FM who was referred to me by her primary care physician. He excised a lesion from her forearm and it came back SSC, small with clear margins and no concerning perineral invasion. He did not have any distance from the clear margin (did not think his margins were 4-6 mm from the tumor edge and no orientation), and therefore referred her to me for surgery to get the appropriate margins. She also had a changing scar distal to the excision that was from a previous biopsy that showed atypical nevi. I told her I would biopsy this spot as well. OPERATIVE DETAILS: Patient was correctly identified in pre-operative holding and the spot for biopsy and the excision site were marked with the patient correctly identifying them with me. She was taken back to the OR and prepped and draped in sterile fashion. Lidocaine with epinephrine was used for a local block (10 cc), as was some sedation from anesthesia. A 6mm margin was taken with a 15 blade circumferentially around the 4 cm incision from the initial SSC resection site for a total excision of 5.2 cm x 1.2 cm for margins. The specimen was oriented with a long suture for the ulnar side, and a short suture for the proximal side. As expected, the frozen section was negative. There is a lot of residual skin laxity. The wound was therefore irrigated and closed for a 5.2 cm intermediate closure with 3-0 monocryl deep dermal sutures and a running 3-0 monocryl. A 5 mm punch was then taken on the scar distal to this area that was identified in preop and was sent for permanent section. A 3-0 moncryl interrupted suture was used to close the punch biopsy. All counts were correct and she was taken to the PACU in stable condition. She tolerated the procedure well. The wounds were dressed with steristrips. EBL: minimal Anesthesia: Sedation with 10 cc of 1% lidocaine with epi IVF 600 cc No lopez (no UOP) POST-OPERATIVE PLAN: f/u permanent sections of the margins and of the punch biopsy. F/u in clinic in 1 week. Counseled on smoking cessation and no heavy lifting.
--- NOTE | 2024-03-13 08:29 | PCM.HP.STD ---
HPI - General HPI Narrative WILLA MACKAY, is a 58 F who presents here for excision. NO change in health history since her visit. [facility]LY [facility] Medical History Hx of fracture of ankle Wears glasses Cancer Depression Anxiety Alcohol use Rheumatoid arthritis History of renal disease Pulmonary embolism Back pain Injury of head and neck Gastric reflux Smoker Leg cramps History of pain when walking Hypertension Home Medications ?Medication ?Instructions ?Recorded ?Last Taken ?Type citalopram 40 mg tablet 40 mg PO DAILY depression 09/23/18 03/13/24 History allopurinol 100 mg tablet 100 mg PO BID gout 03/13/20 03/13/24 History hydroxychloroquine 200 mg tablet 200 mg PO BID 08/06/20 03/13/24 History acebutolol 200 mg capsule 100 mg PO DAILY blood pressure 03/06/24 03/13/24 History diclofenac sodium 1 % topical gel 4 g topical PRN PRN pain 03/08/24 Unknown History famotidine 20 mg tablet 20 mg PO PRN PRN GERD 03/08/24 03/13/24 History guselkumab 100 mg/mL subcutaneous 100 mg subcut .Q8WEEK 03/08/24 Unknown History auto-injector (Tremfya) Allergy/AdvReac Type Severity Reaction Status Date / Time codeine Allergy Rash Verified 03/13/24 06:24 Family History Father Alcoholism Seizures epilepsy Hypertension Mother Hypertension Other COPD (chronic obstructive pulmonary disease) Surgical History Hx of arthroscopic knee surgery Hx of elbow surgery Hx of appendectomy Hx of hysterectomy Hx laparoscopic cholecystectomy History of total knee arthroplasty Social History Smoking Status: Current every day smoker tobacco type: cigarettes alcohol intake: current details: few times a week substance use type: does not use additional social history: pt denies vaping, denies marijuana use, denies edibles, denies aspirin use uses ibuprofen as needed Vital Signs Vital Signs Vital Signs: 03/13/24 06:29 03/13/24 06:29 03/13/24 07:06 Temperature 97.6 F L 97.6 F L Temperature Source Temporal Pulse Rate 77 77 Respiratory Rate 16 16 Respiratory Pattern Normal Blood Pressure 125/77 H 125/77 H Blood Pressure Mean 93 Blood Pressure Source Monitor Blood Pressure Position Semi-Fowlers Blood Pressure Location Right Arm Pulse Ox 96 96 Oxygen Delivery Method Room Air Weight Weight: 220 lb 7.396 oz Body Mass Index (BMI) 33.5 Physical Exam Narrative Right forearm pigmented lesion and SSC excsion scar Assessment & Plan Assessment/Plan (1) Squamous cell carcinoma of skin of right forearm: PLAN: EXcision of the margins in the OR today Charges/Coding Procedures Integumentary [id number]: Other Procedure See Report (no charge interval h&p)
--- NOTE | 2024-03-13 08:38 | PCM.POST.ANE ---
Anesthesia: Postop Eval I Current Vital Signs Temperature: 97.9 F Pulse Rate: 76 Blood Pressure: 121/76 Respiratory Rate: 16 Pulse Ox: 98 Oxygen Delivery Method: Room Air Assessment Airway patent: Yes Spontaneous unlabored respirations: Yes Mental status: Awake and Calm nausea: No Vomiting: No Anesthesia Complication: No Fluid Hydration Crystalloid volume administer (ml): 600 Total IV fluid infused: 600 Progress Note Anesthesia document: Postop Eval 1 completed: Yes
--- NOTE | 2024-03-13 09:08 | PCM.POSTANE2 ---
Anesthesia Postop Eval I Sum Postop Eval Completion status Anesthesia document: Postop Eval 1 completed: Yes Anesthesia Postop Eval I Summary Anesthesia Postop Eval I Summary: Anesthesia Postop Eval I: Assessment Summary Airway patent Yes 03/13/24 08:38 TANNING SOLUTION [email or web address].[email or web address] Spontaneous unlabored Yes 03/13/24 08:38 TANNING SOLUTION [email or web address].[email or web address] respirations Mental status Awake,Calm 03/13/24 08:38 TANNING SOLUTION [email or web address].GDOTT nausea No 03/13/24 08:38 TANNING SOLUTION MAKER.GDOTT Vomiting No 03/13/24 08:38 TANNING SOLUTION [email or web address].GDOTT Anesthesia Postop Eval I: Fluid Summary Crystalloid volume administer 600 03/13/24 08:38 TANNING SOLUTION MAKER.GDOTT (ml) Colloids volume administered ( ml) Blood Product volume administered (ml) Total IV fluid infused 600 03/13/24 08:38 TANNING SOLUTION MAKER.GDOTT Anesthesia Postop Eval I: Summary Notes Anesthesia Complication No 03/13/24 08:38 TANNING SOLUTION [email or web address].GDOTT Anesthesia Complication Comment: Post-operative progress note Anesthesia: Postop Eval II Evaluation Mental status: Awake Pain Level: 0 nausea: No Vomiting: No
--- NOTE | 2024-03-13 09:08 | POSTOPAN2_ITS ---
Anesthesia Postop Eval I Sum Postop Eval Completion status Anesthesia document: Postop Eval 1 completed: Yes Anesthesia Postop Eval I Summary Anesthesia Postop Eval I Summary: Anesthesia Postop Eval I: Assessment Summary Airway patent Yes 03/13/24 08:38 HADOOP ADMIN.[email or web address] Spontaneous unlabored Yes 03/13/24 08:38 HADOOP ADMIN.GDOTT respirations Mental status Awake,Calm 03/13/24 08:38 HADOOP ADMIN.GDOTT nausea No 03/13/24 08:38 HADOOP ADMIN.GDOTT Vomiting No 03/13/24 08:38 HADOOP ADMIN.GDOTT Anesthesia Postop Eval I: Fluid Summary Crystalloid volume administer 600 03/13/24 08:38 HADOOP ADMIN.GDOTT (ml) Colloids volume administered ( ml) Blood Product volume administered (ml) Total IV fluid infused 600 03/13/24 08:38 HADOOP ADMIN.GDOTT Anesthesia Postop Eval I: Summary Notes Anesthesia Complication No 03/13/24 08:38 HADOOP ADMIN.GDOTT Anesthesia Complication Comment: Post-operative progress note Anesthesia: Postop Eval II Evaluation Mental status: Awake Pain Level: 0 nausea: No Vomiting: No
== END 2024-03-13 09:36 | disposition home or self-care (01) ==
LOC: SDC 05:58 → AC 06:00
PROVIDERS: PCP Family Medicine; Referring Provider Surgery Plastic and Reconstructive Surgery; Visit Provider Surgery Plastic and Reconstructive Surgery
PROC: (CPT 11406; principal; 2024-03-13 07:20)
DX: L57.0 Actinic keratosis (principal); I10 Essential (primary) hypertension; F17.210 Nicotine dependence, cigarettes, uncomplicated; L57.8 Other skin changes due to chronic exposure to nonionizing radiation; Z79.899 Other long term (current) drug therapy; K21.9 Gastro-esophageal reflux disease without esophagitis
CPT/HCPCS: 11406; 11104; 12032; 88305; 88331; J7120; J2405